=== PATIENT | female | born 1980 | race Caucasian/White ===

== ENCOUNTER 2017-08-23 11:11 | Emergency (ER) | payer OTHER ==
[2017-08-23 11:29] VITALS: TEMP 98.2; BMI 25.9
[2017-08-23] MEDS ORDERED: SODIUM CHLORIDE 1,000 ML IV ONE (11:40)
[2017-08-23 11:55] LABS: URINE APPEARANCE CLEAR; URINE BILIRUBIN NEGATIVE (NEGATIVE); URINE BLOOD NEGATIVE (NEGATIVE); URINE COLOR STRAW; URINE GLUCOSE (UA) 3+ (NEGATIVE); URINE KETONE NEGATIVE (NEGATIVE); URINE LEUK ESTERASE NEGATIVE (NEGATIVE); URINE NITRITE NEGATIVE (NEGATIVE); URINE PROTEIN NEGATIVE (NEGATIVE); URINE UROBILINOGEN NEGATIVE mg/dL (0.2-1.0)
[2017-08-23 12:20] LABS: BASO % 0.9 % (0-2.0); EOS % 1.4 % (0-4.5); HEMATOCRIT 40.9 % (32.4-45.2); HEMOGLOBIN 13.6 GM/dL (10.7-15.3); LYMPH % 28.4 % (8-40); MCH 29.1 pg (25.7-33.7); MCHC 33.3 g/dl (32.0-36.0); MEAN CELL VOLUME 87.3 fl (80-96); MEAN PLT VOLUME 10.2 fl (7.5-11.1); MONO % 6.4 % (3.8-10.2); NEUT % 62.9 % (42.8-82.8); PLATELET COUNT 174 K/MM3 (134-434); RBC 4.68 M/mm3 (3.60-5.2); RDW 12.8 % (11.6-15.6); WHITE BLOOD COUNT 6.2 K/mm3 (4.0-10.0)
--- NOTE | 2017-08-23 12:40 | PDOC ---
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 Patient reports strong odorous shanice urine with associated flank pain. Patient also notes fluctuating blood sugars ranging from 600-700s. Patient endorses body aches, malaise and feeling unwell Patient reports to the ED for further evaluation. Patient admits to alcohol use over the past weekend. Patient denies chest pain, headache or dizziness. Patient denies fever, chills, abdominal pain, nausea, vomit, diarrhea or constipation. Patient denies dysuria, frequency, urgency or hematuria. Patient denies sick contacts or recent travel. Allergies: NKA Past surgical history: C section x4, Yes: Laminectomy, Chiari Malformation. Social history: Former smoker PCP: Dr. Robledo <Millie Carcamo - Last Filed: 08/23/17 13:07> - General History Source: Patient Exam Limitations: No Limitations - History of Present Illness Initial Comments: 08/23/17 12:37 37-year-old female with history of insulin-dependent diabetes presents with generalized malaise and feeling unwell for a few days. Slightly decreased by mouth intake, fluctuating glucose levels despite insulin pump infusion. No actual fevers or chills, no vomiting or diarrhea, dark urine but no dysuria. 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 No cardiopulmonary complaints. <Israel Sands - Last Filed: 08/23/17 14:19> - General Chief Complaint: Weakness Stated Complaint: WEAKNESS Time Seen by Provider: 08/23/17 11:39 Past History <Millie Carcamo - Last Filed: 08/23/17 13:07> - Past Medical History Anemia: No Asthma: No Cancer: No Cardiac Disorders: No CVA: No COPD: No CHF: No Dementia: No Diabetes: Yes GI Disorders: No Disorders: No HTN: No Hypercholesterolemia: No Liver Disease: No Seizures: No Thyroid Disease: No Other medical history: chiari malformation - Surgical History Abdominal Surgery: No Appendectomy: No Cardiac Surgery: No Cholecystectomy: No Lung Surgery: No Neurologic Surgery: Yes (LAMINECTOMY;CHIARIMAL FORMATION) - Suicide/Smoking/Psychosocial Hx Smoking Status: Yes Smoking History: Former smoker Have you smoked in the past 12 months: No Number of Cigarettes Smoked Daily: 5 Information on smoking cessation initiated: No Hx Alcohol Use: No Drug/Substance Use Hx: No Substance Use Type: None Hx Substance Use Treatment: No <TommiesherronElliot fitchIsrael - Last Filed: 08/23/17 14:19> - Past Medical History Allergies/Adverse Reactions: Allergies Allergy/AdvReac Type Severity Reaction Status Date / Time No Known Allergies Allergy Verified 08/23/17 11:32 Home Medications: Ambulatory Orders Insulin Pump Cartridge [Cartridge Stamped] 1 each SQ ASDIR 01/08/15 Review of Systems - Review of Systems Constitutional: Yes: Weakness. No: Chills, Fever Respiratory: No: Cough, Shortness of Breath Cardiac (ROS): No: Chest Pain ABD/GI: Yes: See HPI : Yes: See HPI All Other Systems: Reviewed and Negative <Israel Sands - Last Filed: 08/23/17 14:19> *Physical Exam - Vital Signs Last Vital Signs Temp Pulse Resp BP Pulse Ox 98.2 F 70 20 101/57 99 08/23/17 11:26 08/23/17 11:26 08/23/17 11:26 08/23/17 11:26 08/23/17 11:26 - Physical Exam Comments: 08/23/17 13:07 GENERAL: The patient is awake, alert, and fully oriented, in no acute distress. HEAD: Normal with no signs of trauma. EYES: Pupils equal, round and reactive to light, extraocular movements intact, sclera anicteric, conjunctiva clear with no pallor. ENT: Ears normal, nares patent, oropharynx clear without exudates. Moist mucous membranes. NECK: Normal range of motion, supple without lymphadenopathy, JVD, or masses. LUNGS: Breath sounds equal, clear to auscultation bilaterally. No wheeze/ crackles. HEART: Regular rate and rhythm, normal S1 and S2 without murmur or rub. ABDOMEN: Soft/nontender/nondistended. BS wnl. No guarding or rebound. No palpable masses. No hepatosplenomegaly. EXTREMITIES: Normal range of motion, no edema. No clubbing or cyanosis. No cords, erythema, or tenderness. NEUROLOGICAL: Cranial nerves II through XII grossly intact. Normal speech, normal gait. PSYCH: Normal mood, normal affect. SKIN: Warm, Dry, normal turgor, no rashes or lesions noted. <Millie Carcamo - Last Filed: 08/23/17 13:07> - Vital Signs Last Vital Signs Temp Pulse Resp BP Pulse Ox 98.2 F 70 20 101/57 99 08/23/17 11:26 08/23/17 11:26 08/23/17 11:26 08/23/17 11:26 08/23/17 11:26 <Israel Sands - Last Filed: 08/23/17 14:19> ED Treatment Course - LABORATORY CBC & Chemistry Diagram: 08/23/17 11:45 08/23/17 11:45 - ADDITIONAL ORDERS Additional order review: Laboratory Results 08/23/17 08/23/17 08/23/17 11:45 11:45 11:45 Sodium 133 L Potassium 4.0 Chloride 103 Carbon Dioxide 23 Anion Gap 7 L BUN 8 Creatinine 0.6 Creat Clearance w eGFR > 60 Random Glucose 270 H Calcium 8.4 L Magnesium 1.9 Total Bilirubin 1.2 H AST 4 L ALT 14 Alkaline Phosphatase 70 Total Protein 7.2 Albumin 4.0 Urine Color Straw Urine Appearance Clear Urine pH 6.0 Ur Specific [place] 1.009 Urine Protein Negative Urine Glucose (UA) 3+ H Urine Ketones Negative Urine Blood Negative Urine Nitrite Negative Urine Bilirubin Negative Urine Urobilinogen Negative Ur Leukocyte Esterase Negative 08/23/17 11:41 Influenza Types A,B Antigen (JUSTICE) - Final Nasopharyngeal Swab - Final 08/23/17 11:45 RBC 4.68 MCV 87.3 MCHC 33.3 RDW 12.8 MPV 10.2 Neutrophils % 62.9 Lymphocytes % 28.4 Monocytes % 6.4 Eosinophils % 1.4 Basophils % 0.9 <Millie Carcamo - Last Filed: 08/23/17 13:07> - LABORATORY CBC & Chemistry Diagram: 08/23/17 11:45 08/23/17 11:45 - ADDITIONAL ORDERS Additional order review: Laboratory Results 08/23/17 11:45 Urine Color Straw Urine Appearance Clear Urine pH 6.0 Ur Specific [place] 1.009 Urine Protein Negative Urine Glucose (UA) 3+ H Urine Ketones Negative Urine Blood Negative Urine Nitrite Negative Urine Bilirubin Negative Urine Urobilinogen Negative Ur Leukocyte Esterase Negative 08/23/17 11:41 Influenza Types A,B Antigen (JUSTICE) - Final Nasopharyngeal Swab - Final 08/23/17 11:45 RBC 4.68 MCV 87.3 MCHC 33.3 RDW 12.8 MPV 10.2 Neutrophils % 62.9 Lymphocytes % 28.4 Monocytes % 6.4 Eosinophils % 1.4 Basophils % 0.9 <Israel Sands - Last Filed: 08/23/17 14:19> Medical Decision Making - Medical Decision Making 08/23/17 12:39 A portion of this note was documented by scribe services under my direction. I have reviewed the details of the note, within reason, and agree with the documentation with the following case summary and management plan written by me. 37-year-old female known insulin-dependent diabetic with worsening malaise over the last few days, here with dark urine but no other focal infectious complaints. Possible metabolic disarray, rule out DKA, rule out UTI. Check labs/creatinine Urinalysis IV fluids Reassess 08/23/17 14:17 labs wnl, slight hyperglycemia without elevated AG. UA clear with only glucose. Received NS 1L, influenza negative. Agrees with d/c, understands return criteria. <Israel Sands - Last Filed: 08/23/17 14:19> *DC/Admit/Observation/Transfer - Attestations Scribe Attestion: 08/23/17 13:07 Documentation prepared by Millie Carcamo, acting as medical radiation tech for Israel Sands MD <Millie Carcamo - Last Filed: 08/23/17 13:07> <Israel Sands - Last Filed: 08/23/17 14:19> Diagnosis at time of Disposition: IDDM (insulin dependent diabetes mellitus) - Discharge Dispostion Disposition: HOME Condition at time of disposition: Stable - Referrals Referrals: Sabino Robledo MD [Primary Care Provider] - - Patient Instructions Printed Discharge Instructions: DI for Hyperglycemia -- Adult Additional Instructions: Activity as tolerated. Stay hydrated. Continue your medications as previously prescribed by your physician. You should follow up with Dr. Robledo as soon as possible regarding today's emergency department visit. Return to the emergency department for any new or concerning symptoms, particularly high fevers or chills, persistently elevated glucose, dehydration or weakness. - Post Discharge Activity
[2017-08-23 12:42] LABS: MAGNESIUM 1.9 mg/dL (1.8-2.4)
[2017-08-23 12:48] LABS: ANION GAP 7 (8-16); BILIRUBIN,TOTAL 1.2 mg/dL (0.2-1.0); BLOOD UREA NITROGEN 8 mg/dL (7-18); CALCIUM 8.4 mg/dL (8.5-10.1); CHLORIDE 103 mmol/L (98-107); CO2 23 mmol/L (21-32); CREATININE 0.6 mg/dL (0.55-1.02); GLUCOSE,RANDOM 270 mg/dL (74-106); SGPT/ALT 14 U/L (12-78); SODIUM 133 mmol/L (136-145); TOT PROT 7.2 g/dl (6.4-8.2)
[2017-08-23 12:50] LABS: ALK PHOS 70 U/L (45-117)
[2017-08-23 12:58] LABS: SGOT/AST 4 U/L (15-37)
[2017-08-23 14:53] VITALS: BP 106/74; PULSE 72
[2017-08-23 15:40] LABS: ACETONE SERUM NEGATIVE (NEGATIVE)
== END 2017-08-23 14:53 | disposition home or self-care (01) ==
LOC: JER 11:11
PROC: 3E0337Z Introduction of Electrolytic and Water Balance Substance into Peripheral Vein, Percutaneous Approach (ICD-10-PCS; principal; 2017-08-23)
DX: E10.65 Type 1 diabetes mellitus with hyperglycemia (principal); Z79.4 Long term (current) use of insulin
CPT/HCPCS: 36415; 80053; 81003; 82009; 83036; 83735; 85025; 87804; 99284-25

== ENCOUNTER 2017-09-17 17:10 | Emergency (ER) | payer OTHER ==
[2017-09-17 17:17] VITALS: BP 124/76; PULSE 84; TEMP 98.5; BMI 25.6
[2017-09-17] MEDS ORDERED: SODIUM CHLORIDE 1,000 ML IV STA (17:24)
--- NOTE | 2017-09-17 17:25 | PDOC ---
Attending Attestation - Resident Resident Name: Gadiel Valladares - ED Attending Attestation I have performed the following: I have examined & evaluated the patient, The case was reviewed & discussed with the resident, I agree w/resident's findings & plan, Exceptions are as noted - HPI HPI: 09/17/17 17:25 37 yo fmeale with IDDm p/w hyperglycemia and polydypsia . Her bgm 600 . she has [employer] insulin pump , no fever,no nausea,no vomiting,no cough 09/17/17 17:59 - Physicial Exam PE: 09/17/17 17:25 wnwd 37 yo female in no acute distress head ncat neck no bruit lungs cta b/l cvr [id number] ext no e/c/c abd soft ,nontender skin warm and dry neuro axox3,ambulatory psych appropriate 09/17/17 18:01 - Medical Decision Making 09/17/17 18:11 IMP hypoerglycemia, ? pump malfunction,diet indiscretion? plan IVF,labs,,insulin and reassess 09/17/17 20:34 pt feeling fine glucose bgm 295,will discharge
[2017-09-17 17:40] LABS: BASO % 0.8 % (0-2.0); EOS % 1.2 % (0-4.5); HEMATOCRIT 40.4 % (32.4-45.2); HEMOGLOBIN 13.8 GM/dL (10.7-15.3); LYMPH % 38.5 % (8-40); MCH 29.4 pg (25.7-33.7); MCHC 34.1 g/dl (32.0-36.0); MEAN CELL VOLUME 86.3 fl (80-96); MONO % 5.2 % (3.8-10.2); NEUT % 54.3 % (42.8-82.8); PLATELET COUNT 145 K/MM3 (134-434); RBC 4.68 M/mm3 (3.60-5.2); RDW 13.1 % (11.6-15.6); WHITE BLOOD COUNT 5.7 K/mm3 (4.0-10.0)
[2017-09-17 18:03] LABS: ALBUMIN 4.1 g/dl (3.4-5.0); ALK PHOS 73 U/L (45-117); ANION GAP 9 (8-16); BILIRUBIN,TOTAL 1.3 mg/dL (0.2-1.0); BLOOD UREA NITROGEN 12 mg/dL (7-18); CALCIUM 8.2 mg/dL (8.5-10.1); CHLORIDE 101 mmol/L (98-107); CO2 23 mmol/L (21-32); POTASSIUM 3.7 mmol/L (3.5-5.1); SGPT/ALT 10 U/L (12-78); SODIUM 133 mmol/L (136-145); TOT PROT 7.3 g/dl (6.4-8.2)
[2017-09-17 18:16] LABS: SGOT/AST 3 U/L (15-37)
[2017-09-17 18:17] LABS: GLUCOSE,RANDOM 380 mg/dL (74-106)
--- NOTE | 2017-09-17 19:04 | PDOC ---
History of Present Illness - General History Source: Patient Exam Limitations: No Limitations <Gadiel Valladares - Last Filed: 09/17/17 19:03> <Sarah Cuellar - Last Filed: 09/17/17 21:21> - General Chief Complaint: Blood Sugar Problem Stated Complaint: HIGH BP Time Seen by Provider: 09/17/17 17:20 Past History - Past Medical History Anemia: No Asthma: No Cancer: No Cardiac Disorders: No CVA: No COPD: No CHF: No Dementia: No Diabetes: Yes GI Disorders: No Disorders: No HTN: No Hypercholesterolemia: No Liver Disease: No Seizures: No Thyroid Disease: No - Surgical History Abdominal Surgery: No Appendectomy: No Cardiac Surgery: No Cholecystectomy: No Lung Surgery: No Neurologic Surgery: Yes (LAMINECTOMY;CHIARIMAL FORMATION) - Suicide/Smoking/Psychosocial Hx Smoking Status: Yes Smoking History: Former smoker Have you smoked in the past 12 months: No Number of Cigarettes Smoked Daily: 5 Information on smoking cessation initiated: No Hx Alcohol Use: No Drug/Substance Use Hx: No Substance Use Type: None Hx Substance Use Treatment: No <Gadiel Valladares - Last Filed: 09/17/17 19:03> <Sarah Cuellar - Last Filed: 09/17/17 21:21> - Past Medical History Allergies/Adverse Reactions: Allergies Allergy/AdvReac Type Severity Reaction Status Date / Time No Known Allergies Allergy Verified 09/17/17 17:14 Home Medications: Ambulatory Orders Insulin Pump Cartridge [Cartridge Stamped] 1 each SQ ASDIR 01/08/15 Dulaglutide [Trulicity] 1.5 mg SQ WEEKLY 09/17/17 *Physical Exam - Vital Signs Last Vital Signs Temp Pulse Resp BP Pulse Ox 98.5 F 84 18 124/76 100 09/17/17 17:15 09/17/17 17:15 09/17/17 17:15 09/17/17 17:15 09/17/17 17:15 <Gadiel Valladares - Last Filed: 09/17/17 19:03> - Vital Signs Last Vital Signs Temp Pulse Resp BP Pulse Ox 98.5 F 84 18 124/76 100 09/17/17 17:15 09/17/17 17:15 09/17/17 17:15 09/17/17 17:15 09/17/17 17:15 <Sarah Cuellar - Last Filed: 09/17/17 21:21> ED Treatment Course - LABORATORY CBC & Chemistry Diagram: 09/17/17 17:30 09/17/17 17:30 - ADDITIONAL ORDERS Additional order review: Laboratory Results 09/17/17 17:30 Sodium 133 L Potassium 3.7 Chloride 101 Carbon Dioxide 23 Anion Gap 9 BUN 12 Creatinine 1.0 Creat Clearance w eGFR > 60 Random Glucose 380 H* Calcium 8.2 L Total Bilirubin 1.3 H AST 3 L ALT 10 L Alkaline Phosphatase 73 Total Protein 7.3 Albumin 4.1 09/17/17 17:30 RBC 4.68 MCV 86.3 MCHC 34.1 RDW 13.1 MPV 11.0 Neutrophils % 54.3 Lymphocytes % 38.5 D Monocytes % 5.2 Eosinophils % 1.2 Basophils % 0.8 - Medications Given in the ED: ED Medications Discontinued Medications Generic Name Dose Route Start Last Admin Trade Name Freq PRN Reason Stop Dose Admin Sodium Chloride 1,000 mls @ 1,000 mls/hr 09/17/17 17:24 09/17/17 17:29 Normal Saline - IV 09/17/17 18:23 1,000 mls/hr ASDIR STA Administration <Gadiel Valladares - Last Filed: 09/17/17 19:03> - LABORATORY CBC & Chemistry Diagram: 09/17/17 17:30 09/17/17 17:30 - ADDITIONAL ORDERS Additional order review: Laboratory Results 09/17/17 09/17/17 19:00 17:30 Sodium 133 L Potassium 3.7 Chloride 101 Carbon Dioxide 23 Anion Gap 9 BUN 12 Creatinine 1.0 Creat Clearance w eGFR > 60 Random Glucose 380 H* Calcium 8.2 L Total Bilirubin 1.3 H AST 3 L ALT 10 L Alkaline Phosphatase 73 Total Protein 7.3 Albumin 4.1 Urine Color Straw Urine Appearance Clear Urine pH 6.0 Ur Specific [place] 1.028 Urine Protein Negative Urine Glucose (UA) 3+ H Urine Ketones Trace H Urine Blood Negative Urine Nitrite Negative Urine Bilirubin Negative Urine Urobilinogen Negative Ur Leukocyte Esterase Negative 09/17/17 17:30 RBC 4.68 MCV 86.3 MCHC 34.1 RDW 13.1 MPV 11.0 Neutrophils % 54.3 Lymphocytes % 38.5 D Monocytes % 5.2 Eosinophils % 1.2 Basophils % 0.8 - Medications Given in the ED: ED Medications Discontinued Medications Generic Name Dose Route Start Last Admin Trade Name Gio PRN Reason Stop Dose Admin Sodium Chloride 1,000 mls @ 1,000 mls/hr 09/17/17 17:24 09/17/17 17:29 Normal Saline - IV 09/17/17 18:23 1,000 mls/hr ASDIR STA Administration <Sarah Cuellar - Last Filed: 09/17/17 21:21> *DC/Admit/Observation/Transfer <Gadiel Valladares - Last Filed: 09/17/17 19:03> <Sarah Cuellar - Last Filed: 09/17/17 21:21> Diagnosis at time of Disposition: IDDM (insulin dependent diabetes mellitus), Hyperglycemia - Discharge Dispostion Disposition: HOME Condition at time of disposition: Stable - Patient Instructions Printed Discharge Instructions: DI for Hyperglycemia -- Adult Additional Instructions: please follow up with your regular physician
[2017-09-17 20:43] LABS: URINE APPEARANCE CLEAR; URINE BILIRUBIN NEGATIVE (NEGATIVE); URINE BLOOD NEGATIVE (NEGATIVE); URINE COLOR STRAW; URINE GLUCOSE (UA) 3+ (NEGATIVE); URINE KETONE TRACE (NEGATIVE); URINE LEUK ESTERASE NEGATIVE (NEGATIVE); URINE NITRITE NEGATIVE (NEGATIVE); URINE PROTEIN NEGATIVE (NEGATIVE); URINE UROBILINOGEN NEGATIVE mg/dL (0.2-1.0)
== END 2017-09-17 21:27 | disposition home or self-care (01) ==
LOC: JER 17:10
PROC: 3E0337Z Introduction of Electrolytic and Water Balance Substance into Peripheral Vein, Percutaneous Approach (ICD-10-PCS; principal; 2017-09-17)
DX: E10.65 Type 1 diabetes mellitus with hyperglycemia (principal); Z79.4 Long term (current) use of insulin; Z96.41 Presence of insulin pump (external) (internal)
CPT/HCPCS: 36415; 80053; 81003; 85025; 87086; 99283-25

== ENCOUNTER 2018-04-26 13:39 | Emergency (ER) | payer OTHER ==
[2018-04-26 13:51] VITALS: BP 114/68; PULSE 89; TEMP 97.9; BMI 26.6
[2018-04-26] MEDS ORDERED: SODIUM CHLORIDE 0.9% 1000 ML INFUS.BAG IV ONE (13:51)
[2018-04-26] MEDS ORDERED: ONDANSETRON 4 MG/2 ML VIAL IVPUSH ONE (13:52)
--- NOTE | 2018-04-26 13:59 | PDOC ---
History of Present Illness - General Chief Complaint: Blood Sugar Problem Stated Complaint: Blood Sugar Problem Time Seen by Provider: 04/26/18 13:49 - History of Present Illness Initial Comments: 04/26/18 13:53 36-year-old female history of diabetes, Chiari malformation, pancreatitis, endometriosis, Q today complaining of feeling nausea body aches headache and high sugars. Patient states she has a insulin pump recently feels the pump wasn' t working correctly. She has been giving herself insulin to compensate for her pump. Today on awakening she checked her sugar and it was over 600 she then gave herself 15 units of regular insulin most recently when she checked her sugar it had come down to 150. She describes feeling chilled but no fevers does have left-sided chest pain bilateral flank pain and generalized myalgia no cough no shortness of breath no urinary complaints. PCP is Dr. recio Past History - Past Medical History Allergies/Adverse Reactions: Allergies Allergy/AdvReac Type Severity Reaction Status Date / Time No Known Allergies Allergy Verified 09/17/17 17:14 Home Medications: Ambulatory Orders Insulin Pump Cartridge [Cartridge Stamped] 1 each SQ ASDIR 01/08/15 Dulaglutide [Trulicity] 1.5 mg SQ WEEKLY 09/17/17 Anemia: No Asthma: No Cancer: No Cardiac Disorders: Yes CVA: No COPD: No CHF: No Dementia: No Diabetes: Yes GI Disorders: No Disorders: No HTN: No Hypercholesterolemia: No Liver Disease: No Seizures: No Thyroid Disease: No - Surgical History Abdominal Surgery: No Appendectomy: No Cardiac Surgery: No Cholecystectomy: No Lung Surgery: No Neurologic Surgery: Yes (LAMINECTOMY;CHIARIMAL FORMATION) - Suicide/Smoking/Psychosocial Hx Smoking Status: Yes Smoking History: Former smoker Have you smoked in the past 12 months: No Number of Cigarettes Smoked Daily: 5 Information on smoking cessation initiated: No Hx Alcohol Use: No Drug/Substance Use Hx: No Substance Use Type: None Hx Substance Use Treatment: No Review of Systems - Review of Systems Constitutional: Yes: Chills. No: Diaphoresis, Fever Respiratory: No: Cough, Orthopnea, Shortness of Breath Cardiac (ROS): Yes: Chest Pain : No: Burning, Dysuria, Discharge Musculoskeletal: Yes: Muscle Pain Integumentary: Yes: Flushing. No: Bruising, Change in Color Endocrine: Yes: Flushing All Other Systems: Reviewed and Negative *Physical Exam - Vital Signs Last Vital Signs Temp Pulse Resp BP Pulse Ox 97.9 F 89 18 114/68 98 04/26/18 13:49 04/26/18 13:49 04/26/18 13:49 04/26/18 13:49 04/26/18 13:49 - Physical Exam Comments: 04/26/18 13:56 Awake alert no acute distress mild facial flushing noted lungs are clear bilaterally heart is regular without any murmurs rubs or gallops abdomen is soft and nontender extremities are warm and well-perfused skin is warm and dry no noted rash only noted flushing in the cheeks neurologically alert oriented 3 Procedures - Bedside Ultrasound Bedside Ultrasound: Cardiac Other: echo Heart Score/ECG Review #1 General ECG Interpretation: Sinus Rhythm, Normal Rate (73), Normal Intervals, No acute ischemic changes ED Treatment Course - LABORATORY CBC & Chemistry Diagram: 04/26/18 13:50 04/26/18 13:50 Medical Decision Making - Medical Decision Making 04/26/18 13:57 37-year-old female history of diabetes with recent pump malfunction sugars reading high now complaining of nausea myalgia headache. Differential diagnosis includes DKA, electrolyte abnormality, subsequent hypoglycemia, infection such as UTI, patient's chest pain pericarditis or myocarditis or MIs considered. Plan EKG troponin chest x-ray UA UCG CBC CMP suarez tones. Will give IV hydration and antinausea medication treat hyperglycemia and acidosis as necessary in addition patient lives in a [facility] area family member did recently get diagnosed Lyme's disease will obtain Lyme titers due to the significant myalgia. Patient does have a history of Chiari however states that her headache is not similar to previous symptoms of Chiari disease 04/26/18 16:26 focused ED TTE, indication chest pain four views of heart obtained, using curvilinear probe. good contractility noted, no pericardial effusion. no rv dilation or strain, impressions: good contractility. no pericardial effusion. pt with negative troponin. no risk factors ro pe, pain not pleuritic. no h/o pe or dvt. no leg swelling or recent travel. feels improved. labs unremarkable. would like to be discharged home. has plan for updating pump to be functional. 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 04/26/18 16:[address] freitas, pt audio visual facilities engineer. state pt had echo that did not show any lvh. will see her next week told to call and schedule an appointment. *DC/Admit/Observation/Transfer Diagnosis at time of Disposition: Hyperglycemia - Discharge Dispostion Disposition: HOME Decision to Admit order: No - Referrals Referrals: Sabino Robledo MD [Primary Care Provider] - Aurelio Colon MD [Staff Physician] - - Patient Instructions Printed Discharge Instructions: DI for Hyperglycemia -- Adult Additional Instructions: you should follow up with your audio visual facilities engineer within one week. call to schedule. return for recurrent high sugars, chest pain, nausea or vomiting, shortness of breath or any other concerns. follow up with your bunk house worker and dr Robledo. your labs and ekg are normal. your limited echo performed today is normal with good contraction and no fluid arround the heart. you should see dr. freitas next week, he says to call for an appointment. - Post Discharge Activity
[2018-04-26] MEDS ORDERED: ONDANSETRON 4 MG/2 ML VIAL ONE (14:04)
[2018-04-26 14:07] LABS: BASO % 0.9 % (0-2.0); EOS % 1.2 % (0-4.5); HEMATOCRIT 43.3 % (32.4-45.2); LYMPH % 29.9 % (8-40); MCH 30.1 pg (25.7-33.7); MCHC 34.6 g/dl (32.0-36.0); MEAN CELL VOLUME 87.1 fl (80-96); MEAN PLT VOLUME 9.8 fl (7.5-11.1); MONO % 8.4 % (3.8-10.2); NEUT % 59.6 % (42.8-82.8); PLATELET COUNT 225 K/MM3 (134-434); RBC 4.98 M/mm3 (3.60-5.2); RDW 12.5 % (11.6-15.6); WHITE BLOOD COUNT 6.3 K/mm3 (4.0-10.0)
[2018-04-26 14:41] LABS: ALBUMIN 4.4 g/dl (3.4-5.0); ALK PHOS 82 U/L (45-117); ANION GAP 8 MMOL/L (8-16); BILIRUBIN,TOTAL 2.1 mg/dL (0.2-1); BLOOD UREA NITROGEN 13 mg/dL (7-18); CALCIUM 8.7 mg/dL (8.5-10.1); CHLORIDE 106 mmol/L (98-107); CO2 22 mmol/L (21-32); CREATININE 0.7 mg/dL (0.55-1.3); GLUCOSE,RANDOM 93 mg/dL (74-106); SGOT/AST 10 U/L (15-37); SGPT/ALT 17 U/L (13-61); SODIUM 136 mmol/L (136-145)
[2018-04-26 15:31] LABS: URINE APPEARANCE SLCLOUDY; URINE BILIRUBIN NEGATIVE (<2.0 mg/dL); URINE COLOR STRAW; URINE GLUCOSE (UA) NEGATIVE (NEGATIVE); URINE KETONE TRACE (NEGATIVE); URINE LEUK ESTERASE NEGATIVE (NEGATIVE); URINE NITRITE NEGATIVE (NEGATIVE); URINE PROTEIN NEGATIVE (NEGATIVE); URINE UROBILINOGEN NEGATIVE mg/dL (0.2-1.0)
--- NOTE | 2018-04-27 17:11 | EKG ---
Test Reason : Blood Pressure : / mmHG Vent. Rate : 073 BPM Atrial Rate : 073 BPM P-R Int : 176 ms QRS Dur : 094 ms QT Int : 400 ms P-R-T Axes : 045 055 046 degrees QTc Int : 440 ms NORMAL SINUS RHYTHM NORMAL ECG WHEN COMPARED WITH ECG OF 18-FEB-2013 07:39, NO SIGNIFICANT CHANGE WAS FOUND Confirmed by SHAGGY BAHENA MD ([id number]) on 04/27/2018 5:11:29 PM Referred By: Confirmed By:SHAGGY BAHENA MD
== END 2018-04-26 16:31 | disposition home or self-care (01) ==
LOC: JER 13:39
PROC: 3E033GC Introduction of Other Therapeutic Substance into Peripheral Vein, Percutaneous Approach (ICD-10-PCS; principal; 2018-04-26)
DX: E10.65 Type 1 diabetes mellitus with hyperglycemia (principal); Z79.4 Long term (current) use of insulin; Z96.41 Presence of insulin pump (external) (internal); K86.1 Other chronic pancreatitis
CPT/HCPCS: 36415; 71046-TC-FY; 80053; 81003; 82009; 82550; 82962; 83036; 83605; 84484; 85025; 86618; 93005; 93010; 99282-25; J7030

== ENCOUNTER 2018-07-14 13:13 | Inpatient (IN) | payer OTHER ==
[2018-07-14] MEDS ORDERED: ONDANSETRON *ODT* 4 MG TABLET ONE (13:25)
[2018-07-14] MEDS ORDERED: FAMOTIDINE 20 MG/50 ML IVPB 20 MG/50 ML MG IVPB ONE ×3 (13:25→14:46)
[2018-07-14] MEDS ORDERED: SODIUM CHLORIDE 0.9% 1000 ML INFUS.BAG IV ONE ×3 (13:35→14:48)
[2018-07-14] MEDS ORDERED: ONDANSETRON *ODT* 4 MG TABLET SL ONE (13:36)
[2018-07-14] MEDS ORDERED: HYDROmorphone HCL CARPU-JECT 2 MG/1 ML DISP.SYRIN IVPUSH ONE (13:36)
[2018-07-14] MEDS ORDERED: ONDANSETRON 4 MG/2 ML VIAL IVPUSH ONE (13:36)
[2018-07-14] MEDS ORDERED: HYDROmorphone HCl 2 MG/ML VIAL ONE (13:42)
[2018-07-14] MEDS ORDERED: ONDANSETRON 4 MG/2 ML VIAL ONE (13:43)
[2018-07-14] MEDS ORDERED: ACETAMINOPHEN INJECTION 100 ML IVPB ONE (13:44)
[2018-07-14] MEDS ORDERED: INSULIN REGULAR 100 UNITS in SODIUM CHLORIDE 99 ML IVPB SCH (13:45)
[2018-07-14] MEDS ORDERED: ALBUTEROL SO4 2.5/IPRATROPIUM 0.5 INH SOL 3 ML VIAL.NEB. NEB ONE ×2 (13:46)
[2018-07-14] MEDS ORDERED: ACETAMINOPHEN 1000 MG/100 ML VIAL (NON FORMULARY) IVPB ONE (13:46)
[2018-07-14 14:12] LABS: BASO % 0.6 % (0-2.0); EOS % 0.1 % (0-4.5); HEMATOCRIT 39.8 % (32.4-45.2); LYMPH % 5.3 % (8-40); MCH 31.3 pg (25.7-33.7); MCHC 35.1 g/dl (32.0-36.0); MEAN CELL VOLUME 89.2 fl (80-96); MEAN PLT VOLUME 10.8 fl (7.5-11.1); MONO % 7.4 % (3.8-10.2); NEUT % 86.6 % (42.8-82.8); PLATELET COUNT 157 K/MM3 (134-434); RBC 4.46 M/mm3 (3.60-5.2); WHITE BLOOD COUNT 8.1 K/mm3 (4.0-10.0)
[2018-07-14 14:20] LABS: ARTERIAL BLOOD GAS BASE EXCESS -20.2 meq/l (-2-2); ARTERIAL BLOOD GAS pH 7.21 (7.35-7.45); CARBOXYHEMOGLOBIN 0.6 gm% (0.5-2.0)
--- NOTE | 2018-07-14 14:26 | PDOC ---
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 She states she took 15 units of insulin prior to bed. She states her sugar dropped very low and then shot back up to 500 without having eaten anything today.She states she removed her insulin pump when she noticed her BGM was back to 500 this morning. She reports nausea and multiple episodes of NBNB emesis today. She reports a diffuse pressure like headache. She denies visual changes. Secondarily, she states she has been experiencing cold symptoms including dry cough which is associated with lung burning sensation and increased SOB. She states she could not walk 5 feet today without becoming short of breath. Patient denies chest pain or dizziness. Patient denies abdominal pain, diarrhea or constipation. Patient denies dysuria, frequency, urgency or hematuria. Patient denies sick contacts or recent travel. Allergies: NKDA Past surgical history: C section x4, Laminectomy, Chiari Malformation. Social history: Former smoker PCP: Dr. Robledo <Barbara Garcia - Last Filed: 07/14/18 15:04> - General Chief Complaint: SIRS, Suspected/Possible Stated Complaint: vomiting fever Past History - Past Medical History Anemia: No Asthma: No Cancer: No Cardiac Disorders: Yes CVA: No COPD: No CHF: No Dementia: No Diabetes: Yes GI Disorders: No Disorders: No HTN: No Hypercholesterolemia: No Liver Disease: No Seizures: No Thyroid Disease: No - Surgical History Abdominal Surgery: No Appendectomy: No Cardiac Surgery: No Cholecystectomy: No Lung Surgery: No Neurologic Surgery: Yes (LAMINECTOMY;CHIARIMAL FORMATION) - Suicide/Smoking/Psychosocial Hx Smoking Status: Yes Smoking History: Current some day smoker Have you smoked in the past 12 months: Yes Number of Cigarettes Smoked Daily: 1 Information on smoking cessation initiated: No Hx Alcohol Use: No Drug/Substance Use Hx: No Substance Use Type: None Hx Substance Use Treatment: No <Yesenia Stanley - Last Filed: 07/14/18 14:57> <Barbara Garcia - Last Filed: 07/14/18 15:04> - Past Medical History Allergies/Adverse Reactions: Allergies Allergy/AdvReac Type Severity Reaction Status Date / Time No Known Allergies Allergy Verified 09/17/17 17:14 Home Medications: Ambulatory Orders Insulin Pump Cartridge [Cartridge Stamped] 1 each SQ ASDIR 01/08/15 Dulaglutide [Trulicity] 1.5 mg SQ WEEKLY 09/17/17 Review of Systems - Review of Systems Able to Perform ROS?: Yes Comments:: 07/14/18 15:03 GENERAL/CONSTITUTIONAL: (+) subjective fever and chills. No weakness. HEAD, EYES, EARS, NOSE AND THROAT: No change in vision. No ear pain or discharge. No sore throat. GASTROINTESTINAL: (+) nausea, vomiting, No diarrhea or constipation. GENITOURINARY: No dysuria, frequency, or change in urination. CARDIOVASCULAR: (+)shortness of breath. No chest pain RESPIRATORY:(+) SOB and cough, No wheezing, or hemoptysis. MUSCULOSKELETAL: No joint or muscle swelling or pain. No neck or back pain. SKIN: No rash NEUROLOGIC: (+) headache, No vertigo, loss of consciousness, or change in strength/sensation. ENDOCRINE: No increased thirst. No abnormal weight change. HEMATOLOGIC/LYMPHATIC: No anemia, easy bleeding, or history of blood clots. ALLERGIC/IMMUNOLOGIC: No hives or skin allergy. <Barbara Garcia - Last Filed: 07/14/18 15:04> *Physical Exam - Vital Signs Last Vital Signs Temp Pulse Resp BP Pulse Ox 97.7 F 105 H 20 116/60 100 07/14/18 13:22 07/14/18 13:15 07/14/18 13:15 07/14/18 13:15 07/14/18 13:15 <Yesenia Stanley - Last Filed: 07/14/18 14:57> - Vital Signs Last Vital Signs Temp Pulse Resp BP Pulse Ox 97.7 F 108 H 18 110/64 100 07/14/18 13:22 07/14/18 14:44 07/14/18 14:44 07/14/18 14:44 07/14/18 14:44 - Physical Exam Comments: 07/14/18 15:03 Constitutional: Awake, alert, oriented. No acute distress. Head: Normocephalic. Atraumatic Eyes: PERRL. EOMI. Conjunctivae are not pale. ENT: (+) Mucous membranes are dry and intact. Posterior pharynx without exudates or erythema. Uvula midline. Neck: Supple. Full ROM. No lymphadenopathy. Cardiovascular: (+) tachycardic rate. Regular rhythm. S1, S2 regular. Distal pulses are 2+ and symmetric. Pulmonary/Chest: No evidence of respiratory distress. Clear to auscultation bilaterally No wheezing, rales or rhonchi. Abdominal: Soft and non-distended. There is no tenderness. No rebound, guarding or rigidity. No organomegaly. No palpable masses. Good bowel sounds. Back: No CVA tenderness. Musculoskeletal: No edema. No cyanosis. No clubbing. Full range of motion in all extremities. Nocalf tenderness. Radial/pedal pulses are intact and 2+ bilaterally Skin: (+) Skin is hot to touch and dry. No petechiae. No purpura. Neurological: Alert and oriented to person, place, and time. Cranial nerves II -XII are grossly intact. Normal speech. Strength is grossly symmetric. No sensory deficits. Psychiatric: Good eye contact. Normal interaction, affect and behavior. <Barbara Garcia - Last Filed: 07/14/18 15:04> Moderate Sedation - Procedure Monitoring Vital Signs: Procedure Monitoring Vital Signs Temperature 97.7 F 07/14/18 13:22 Pulse Rate 105 H 07/14/18 13:15 Respiratory Rate 20 07/14/18 13:15 Blood Pressure 116/60 07/14/18 13:15 O2 Sat by Pulse Oximetry (%) 100 07/14/18 13:15 <Yesenia Stanley - Last Filed: 07/14/18 14:57> - Procedure Monitoring Vital Signs: Procedure Monitoring Vital Signs Temperature 97.7 F 07/14/18 13:22 Pulse Rate 108 H 07/14/18 14:44 Respiratory Rate 18 07/14/18 14:44 Blood Pressure 110/64 07/14/18 14:44 O2 Sat by Pulse Oximetry (%) 100 07/14/18 14:44 <Barbara Garcia - Last Filed: 07/14/18 15:04> Heart Score/ECG Review - ECG Intrepretation Comment:: 07/14/18 14:49 sinus tach at 110, nl axis, nl interval, no acute st/t wave findings <Yesenia Stanley - Last Filed: 07/14/18 14:57> ED Treatment Course - LABORATORY CBC & Chemistry Diagram: 07/14/18 13:58 07/14/18 13:58 - ADDITIONAL ORDERS Additional order review: Laboratory Results 07/14/18 07/14/18 13:51 13:34 Anticoagulation Therapy No Result Required. O2 Delivery Device No Result Required. Oxygen Flow Rate No Result Required. Vent Mode No Result Required. Vent Rate No Result Required. Mechanical Rate No Result Required. Pressure Support Vent No Result Required. POC Glucometer [id number] 07/14/18 07/14/18 13:58 13:34 RBC 4.46 MCV 89.2 MCHC 35.1 RDW 13.0 MPV 10.8 D Neutrophils % 86.6 H D Lymphocytes % 5.3 L D Monocytes % 7.4 Eosinophils % 0.1 D Basophils % 0.6 POC Glucometer 370.39782 - RADIOLOGY Radiology Studies Ordered: Category Date Time Status CHEST X-RAY PORTABLE* [RAD] Stat Radiology 07/14/18 13:35 Taken - Medications Given in the ED: ED Medications Discontinued Medications Generic Name Dose Route Start Last Admin Trade Name Gio PRN Reason Stop Dose Admin Acetaminophen 1,000 mg 07/14/18 13:46 07/14/18 14:07 Ofirmev Injection - IVPB 07/14/18 13:47 1,000 mg ONCE ONE Administration Albuterol/Ipratropium 1 amp 07/14/18 13:46 07/14/18 14:07 Duoneb - NEB 07/14/18 13:47 1 amp ONCE ONE Administration Hydromorphone HCl 1 mg 07/14/18 13:36 07/14/18 13:49 Dilaudid Injection - IVPUSH 07/14/18 13:37 1 mg ONCE ONE Administration Ondansetron HCl 4 mg 07/14/18 13:36 07/14/18 13:41 Zofran Odt - SL 07/14/18 13:37 4 mg ONCE ONE Administration Ondansetron HCl 4 mg 07/14/18 13:36 07/14/18 13:49 Zofran Injection IVPUSH 07/14/18 13:37 4 mg ONCE ONE Administration Sodium Chloride 1,000 ml 07/14/18 13:35 07/14/18 13:40 Normal Saline - IV 07/14/18 13:36 1,000 ml ONCE ONE Administration Sodium Chloride 1,000 ml 07/14/18 13:36 07/14/18 13:40 Normal Saline - IV 07/14/18 13:37 1,000 ml ONCE ONE Administration <Yesenia Stanley - Last Filed: 07/14/18 14:57> - LABORATORY CBC & Chemistry Diagram: 07/14/18 13:58 07/14/18 13:58 - ADDITIONAL ORDERS Additional order review: Laboratory Results 07/14/18 07/14/18 07/14/18 13:58 13:51 13:51 Anticoagulation Therapy No Result Required. Puncture Site No Result Required. ABG pH 7.21 L* ABG pCO2 at Pt Temp 16.7 L* ABG pO2 at Pt Temp 212.0 H* ABG HCO3 6.4 L* ABG O2 Sat (Measured) 99.0 H ABG O2 Content 19.5 ABG Base Excess -20.2 L* Kelvin Test No Result Required. Carboxyhemoglobin 0.6 Methemoglobin 0.5 O2 Delivery Device No Result Required. Oxygen Flow Rate Yes Vent Mode No Result Required. Vent Rate No Result Required. Mechanical Rate No Result Required. Pressure Support Vent No Result Required. Sodium 133 L Potassium 4.2 Chloride 108 H Carbon Dioxide 7 L Anion Gap 18 H BUN 12 Creatinine 0.9 Creat Clearance w eGFR > 60 POC Glucometer Random Glucose 341 H* Lactic Acid Calcium 7.5 L Magnesium 1.8 Total Bilirubin 1.4 H AST 17 ALT 16 Alkaline Phosphatase 90 Creatine Kinase 41 Troponin I < 0.02 Total Protein 7.3 Albumin 4.1 Lipase 89 Serum , Qual Acetone, Qual Positive moderate 2+ H 07/14/18 07/14/18 07/14/18 13:51 13:51 13:34 Anticoagulation Therapy Puncture Site ABG pH ABG pCO2 at Pt Temp ABG pO2 at Pt Temp ABG HCO3 ABG O2 Sat (Measured) ABG O2 Content ABG Base Excess Kelvin Test Carboxyhemoglobin Methemoglobin O2 Delivery Device Oxygen Flow Rate Vent Mode Vent Rate Mechanical Rate Pressure Support Vent Sodium Potassium Chloride Carbon Dioxide Anion Gap BUN Creatinine Creat Clearance w eGFR POC Glucometer [id number] Random Glucose Lactic Acid 1.7 Calcium Magnesium Total Bilirubin AST ALT Alkaline Phosphatase Creatine Kinase Troponin I Total Protein Albumin Lipase Serum , Qual Negative Acetone, Qual 07/14/18 07/14/18 13:58 13:34 RBC 4.46 MCV 89.2 MCHC 35.1 RDW 13.0 MPV 10.8 D Neutrophils % 86.6 H D Lymphocytes % 5.3 L D Monocytes % 7.4 Eosinophils % 0.1 D Basophils % 0.6 POC Glucometer [id number] - Medications Given in the ED: ED Medications Discontinued Medications Generic Name Dose Route Start Last Admin Trade Name Freq PRN Reason Stop Dose Admin Acetaminophen 1,000 mg 07/14/18 13:46 07/14/18 14:07 Ofirmev Injection - IVPB 07/14/18 13:47 1,000 mg ONCE ONE Administration Albuterol/Ipratropium 1 amp 07/14/18 13:46 07/14/18 14:07 Duoneb - NEB 07/14/18 13:47 1 amp ONCE ONE Administration Hydromorphone HCl 1 mg 07/14/18 13:36 07/14/18 13:49 Dilaudid Injection - IVPUSH 07/14/18 13:37 1 mg ONCE ONE Administration Famotidine/Sodium Chloride 20 mg in 50 mls @ 100 mls/hr 07/14/18 13:36 14:56 Pepcid 20 Mg Premixed Ivpb - IVPB 07/14/18 14:05 100 mls/hr ONCE ONE Administration Ondansetron HCl 4 mg 07/14/18 13:36 07/14/18 13:41 Zofran Odt - SL 07/14/18 13:37 4 mg ONCE ONE Administration Ondansetron HCl 4 mg 07/14/18 13:36 07/14/18 13:49 Zofran Injection IVPUSH 07/14/18 13:37 4 mg ONCE ONE Administration Sodium Chloride 1,000 ml 07/14/18 13:35 07/14/18 13:40 Normal Saline - IV 07/14/18 13:36 1,000 ml ONCE ONE Administration Sodium Chloride 1,000 ml 07/14/18 13:36 07/14/18 13:40 Normal Saline - IV 07/14/18 13:37 1,000 ml ONCE ONE Administration <Barbara Garcia - Last Filed: 07/14/18 15:04> Medical Decision Making - Critical Care Time Total Critical Care Time (minutes): 45 Critical Care Statement: The care of this patient involved high complexity decision making to prevent further life threatening deterioration of the patient 's condition and/or to evaluate & treat vital organ system(s) failure or risk of failure. - Medical Decision Making 07/14/18 14:49 a/p: 37yo female with hx of DM presents for eval of cough, URI, fever, n/v and labile glucose readings at home -pt is toxic appearing and dehydrated -concern for influenza -concern for DKA -concern for PNA -will send labs, cultures, ua, ucx, acetone, abg -pt will need admission -will start ivf hydration, zofran, pepcid, tylenol, nebs 07/14/18 14:49 flu negative cxr clear no elevated wbc 07/14/18 14:50 acetone + 07/14/18 14:50 abg shows metabolic acidosis - concern for DKA - insulin gtt ordered k 4.2 case discussed with ICU resident - Reynaldo who accepts pt to icu case discussed with Vikash Spann from Dr. Robledo service, who accepts pt to service consult placed to Dr. Hoyt and Dr. Raymond call placed to Dr. Raymond 07/14/18 14:57 <Yesenia Stanley - Last Filed: 07/14/18 14:57> *DC/Admit/Observation/Transfer - Discharge Dispostion Decision to Admit order: Yes - Attestations Physician Attestion: 07/14/18 14:46 I, Dr. Yesenia Stanley, DO, attest that this document has been prepared under my direction and personally reviewed by me in its entirety. I further attest, that it accurately reflects all work, treatment, procedures and medical decision -making performed by me. <Yesenia Stanley - Last Filed: 07/14/18 14:57> - Attestations Scribe Attestion: 07/14/18 15:04 Documentation prepared by Barbara Garcia, acting as medical transcription editor for Yesenia Stanley DO <Barbara Garcia - Last Filed: 07/14/18 15:04> Diagnosis at time of Disposition: DKA (diabetic ketoacidoses) - Discharge Dispostion Condition at time of disposition: Critical
[2018-07-14 14:32] LABS: ARTERIAL BLOOD GAS PCO2 16.7 mmHg (35-45)
[2018-07-14 14:45] LABS: ALBUMIN 4.1 g/dl (3.4-5.0); ALK PHOS 90 U/L (45-117); ANION GAP 18 MMOL/L (8-16); BILIRUBIN,TOTAL 1.4 mg/dL (0.2-1); BLOOD UREA NITROGEN 12 mg/dL (7-18); CALCIUM 7.5 mg/dL (8.5-10.1); CHLORIDE 108 mmol/L (98-107); CO2 7 mmol/L (21-32); CREATININE 0.9 mg/dL (0.55-1.3); LIPASE 89 U/L (73-393); MAGNESIUM 1.8 mg/dL (1.8-2.4); POTASSIUM 4.2 mmol/L (3.5-5.1); SGOT/AST 17 U/L (15-37); SGPT/ALT 16 U/L (13-61); SODIUM 133 mmol/L (136-145); TOT PROT 7.3 g/dl (6.4-8.2)
[2018-07-14 14:48] LABS: GLUCOSE,RANDOM 341 mg/dL (74-106)
[2018-07-14] MEDS ORDERED: INSULIN REGULAR HUMAN 100 UNITS/ML *VIAL ONE (14:53)
[2018-07-14] MEDS ORDERED: SODIUM CHLORIDE 0.9%/KCL 20 MEQ/1,000 ML INFUS.BAG IV SCH ×2 (15:45→15:46)
[2018-07-14] MEDS ORDERED: SODIUM CHLORIDE 1,000 ML IV SCH (15:45)
[2018-07-14] MEDS: KCL 10 MEQ IVPB 10 MEQ/100 ML INFUS.BAG IVPB SCH ×3 (16:04→21:00)
--- NOTE | 2018-07-14 16:08 | CONSULT ---
Consultation: ICU team REQUESTING PROVIDER:Dr merline Patterson CONSULT REQUEST: We have been asked to medically evaluate this patient for (DKA ). 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 she reports chest pain when coughing, and sob on exertion last week. she reports headache earlier but resolved at my present, denies any dizziness, lightheadedness, denies any palpitation , abdominal pain, D/C, denies any urinary symptoms. urine is condense michael yellow and fruity smell per pt. denies any joint pain back pain but reports chronic neck pain with h/o Budd chiarry and craniotomy with laminectomy denies any recent tarvel or sick contact. PMHx: DMI, Budd chairi, Endometriosis PSHx: 4 , Uterine ablation , craniotomy, laminectomy Allergis: NKDA Meds: Insulin pump at 300 units weekly, vit D 1999, Multivitamin FH: DM, HTN , and breast cancer , skin cancer in her mother. Social hx: skoming socially , alcohol socially, denies drugs. REVIEW OF SYSTEMS: CONSTITUTIONAL: Absent: fever, chills, diaphoresis, generalized weakness, malaise, loss of appetite, weight change HEENT: Absent: rhinorrhea, nasal congestion, throat pain, throat swelling, difficulty swallowing, mouth swelling, ear pain, eye pain, visual changes CARDIOVASCULAR: Absent: chest painwhen coughing , syncope, palpitations, irregular heart rate, lightheadedness, peripheral edema RESPIRATORY: Absent: cough, shortness of breath, dyspnea with exertion, orthopnea, wheezing, stridor, hemoptysis GASTROINTESTINAL: Absent: abdominal pain, abdominal distension, nausea, vomiting, diarrhea, constipation, melena, hematochezia GENITOURINARY: Absent: dysuria, frequency, urgency, hesitancy, hematuria, flank pain, genital pain MUSCULOSKELETAL: Absent: myalgia, arthralgia, joint swelling, back pain, neck pain SKIN: Absent: rash, itching, pallor HEMATOLOGIC/IMMUNOLOGIC: Absent: easy bleeding, easy bruising, lymphadenopathy, frequent infections ENDOCRINE: Absent: unexplained weight gain, unexplained weight loss, heat intolerance, cold intolerance NEUROLOGIC: Absent: headache, focal weakness or paresthesias, dizziness, unsteady gait, seizure, mental status changes, bladder or bowel incontinence PSYCHIATRIC: Absent: anxiety, depression, suicidal or homicidal ideation, hallucinations. PHYSICAL EXAMINATION Vital Signs - 24 hr 07/14/18 07/14/18 07/14/18 13:15 13:22 14:44 Temperature 97.7 F Pulse Rate 105 H Pulse Rate [ 108 H Right Radial] Respiratory 20 18 Rate Blood Pressure 116/60 Blood Pressure 110/64 [Right Arm] O2 Sat by Pulse 100 100 Oximetry (%) GENERAL: AAOx3 in NAD HEAD: NC/AT EYES: Merary, EOMI, ENT: Dry MM NECK: supple FROM, no JVD LUNGS: Breath sounds equal, clear to auscultation bilaterally. No wheezes, and no crackles. No accessory muscle use. HEART: Regular rate and rhythm, normal S1 and S2 without murmur, rub or gallop. ABDOMEN: Soft, nontender, not distended, normoactive bowel sounds, no guarding, no rebound, MUSCULOSKELETAL: Normal range of motion at all joints. No bony deformities or tenderness. No CVA tenderness. UPPER EXTREMITIES: 2+ pulses, warm, well-perfused. No cyanosis. No clubbing. Cap refill <2 seconds. No peripheral edema. LOWER EXTREMITIES: 2+ pulses, warm, well-perfused. No calf tenderness. No peripheral edema. NEUROLOGICAL: no focal deficit , Normal speech. PSYCHIATRIC: Cooperative. Good eye contact. Appropriate mood and affect. SKIN: Warm, dry, Laboratory Results - last 24 hr 07/14/18 07/14/18 07/14/18 13:34 13:51 13:51 WBC RBC Hgb Hct MCV MCH MCHC RDW Plt Count MPV Absolute Neuts (auto) Neutrophils % Lymphocytes % Monocytes % Eosinophils % Basophils % Nucleated RBC % Anticoagulation Therapy Puncture Site ABG pH ABG pCO2 at Pt Temp ABG pO2 at Pt Temp ABG HCO3 ABG O2 Sat (Measured) ABG O2 Content ABG Base Excess Kelvin Test Carboxyhemoglobin Methemoglobin O2 Delivery Device Oxygen Flow Rate Vent Mode Vent Rate Mechanical Rate Pressure Support Vent Sodium Potassium Chloride Carbon Dioxide Anion Gap BUN Creatinine Creat Clearance w eGFR POC Glucometer [id number] Random Glucose Lactic Acid 1.7 Calcium Magnesium Total Bilirubin AST ALT Alkaline Phosphatase Creatine Kinase Troponin I Total Protein Albumin Lipase Serum , Qual Acetone, Qual Influenza A (Rapid) Negative Influenza B (Rapid) Negative 07/14/18 07/14/18 07/14/18 13:51 13:51 13:51 WBC RBC Hgb Hct MCV MCH MCHC RDW Plt Count MPV Absolute Neuts (auto) Neutrophils % Lymphocytes % Monocytes % Eosinophils % Basophils % Nucleated RBC % Anticoagulation Therapy No Result Required. Puncture Site Right radial ABG pH 7.21 L* ABG pCO2 at Pt Temp 16.7 L* ABG pO2 at Pt Temp 212.0 H* ABG HCO3 6.4 L* ABG O2 Sat (Measured) 99.0 H ABG O2 Content 19.5 ABG Base Excess -20.2 L* Kelvin Test No Result Required. Carboxyhemoglobin 0.6 Methemoglobin 0.5 O2 Delivery Device No Result Required. Oxygen Flow Rate Yes Vent Mode No Result Required. Vent Rate No Result Required. Mechanical Rate No Result Required. Pressure Support Vent No Result Required. Sodium Potassium Chloride Carbon Dioxide Anion Gap BUN Creatinine Creat Clearance w eGFR POC Glucometer Random Glucose Lactic Acid Calcium Magnesium Total Bilirubin AST ALT Alkaline Phosphatase Creatine Kinase Troponin I Total Protein Albumin Lipase Serum , Qual Negative Acetone, Qual Positive moderate 2+ H Influenza A (Rapid) Influenza B (Rapid) 07/14/18 07/14/18 13:58 13:58 WBC 8.1 RBC 4.46 Hgb 14.0 Hct 39.8 MCV 89.2 MCH 31.3 MCHC 35.1 RDW 13.0 Plt Count 157 D MPV 10.8 D Absolute Neuts (auto) 7.0 Neutrophils % 86.6 H D Lymphocytes % 5.3 L D Monocytes % 7.4 Eosinophils % 0.1 D Basophils % 0.6 Nucleated RBC % 0 Anticoagulation Therapy Puncture Site ABG pH ABG pCO2 at Pt Temp ABG pO2 at Pt Temp ABG HCO3 ABG O2 Sat (Measured) ABG O2 Content ABG Base Excess Kelvin Test Carboxyhemoglobin Methemoglobin O2 Delivery Device Oxygen Flow Rate Vent Mode Vent Rate Mechanical Rate Pressure Support Vent Sodium 133 L Potassium 4.2 Chloride 108 H Carbon Dioxide 7 L Anion Gap 18 H BUN 12 Creatinine 0.9 Creat Clearance w eGFR > 60 POC Glucometer Random Glucose 341 H* Lactic Acid Calcium 7.5 L Magnesium 1.8 Total Bilirubin 1.4 H AST 17 ALT 16 Alkaline Phosphatase 90 Creatine Kinase 41 Troponin I < 0.02 Total Protein 7.3 Albumin 4.1 Lipase 89 Serum , Qual Acetone, Qual Influenza A (Rapid) Influenza B (Rapid) Active Medications Generic Name Dose Route Start Last Admin Trade Name Andrzejq PRN Reason Stop Dose Admin Insulin Human Regular 100 100 mls @ 7.07 mls/hr 07/14/18 13:45 07/14/18 15:30 units/ Sodium Chloride IVPB 0.14 units/kg/hr TITR ANEESH 9.9 mls/hr Titration Protocol 0.1 UNITS/KG/HR Potassium Chloride 10 meq in 100 mls @ 100 mls/hr 07/14/18 15:45 07/14/18 16: 04 Potassium Chloride 10 Meq Premix Ivpb - IVPB 07/14/18 18:44 100 mls/hr Q60M ANEESH Administration Potassium Chloride/Sodium Chloride 20 meq in 1,000 mls @ 175 mls/hr 07/14/18 15:46 07/14/18 15:50 Ns+20 Meq Kcl - IV 175 mls/hr ASDIR ANEESH Administration CBC, BMP 07/14/18 13:58 07/14/18 13:58 ASSESSMENT/PLAN: 37 year old female with h/o of DMI on insulin pump, endometriosis , 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 # DKA likley to non compliant plus infection * glucose 341, AG 18, Ketone in urine * one week h/o common cold * 2 large IV pores * IV fluids bolus 3L in ED , 175 NS @ 175 maintenance with 20 meq kcl * Insulin drip @ 0.1 ml/kg/hr * K4.2 started on 10 packs * BGM Q 1 hr * BMP Q 4hr with venous PH and AG * serum osmolality * start D5 1/2 NS @ glucose of 200 * keep K between 4-5.3 * when AG closed will start in Insulin SQ for 2 hours and start feeding her * UA , acetone Urine and serum * Cbc, cmp in AM # FEN * NS @ 175 CC/hr with 20 meq KCL * E: monitor K, P, na and replinished as needed * NPO till AG closed then diabetic diet # Proph * DVTS: SCDS * GI: no need # Dispo * monitor in ICU # Code : full Dispo: We will continue to follow the patient. Thank you for this consultative opportunity. Visit type - Emergency Visit Emergency Visit: Yes ED Registration Date: 07/14/18 Care time: The patient presented to the Emergency Department on the above date and was hospitalized for further evaluation of their emergent condition. - New Patient This patient is new to me today: Yes Date on this admission: 07/14/18 - Critical Care Critical Care patient: Yes Total Critical Care Time (in minutes): 45 Critical Care Statement: The care of this patient involved high complexity decision making to prevent further life threatening deterioration of the patient 's condition and/or to evaluate & treat vital organ system(s) failure or risk of failure.
[2018-07-14 16:23] VITALS: BMI 25.8
[2018-07-14] MEDS ORDERED: D5-1/2NS+10 MEQ KCL - 10 MEQ/1,000 ML INFUS.BAG IV SCH (17:00)
[2018-07-14] MEDS ORDERED: ONDANSETRON 4 MG/2 ML VIAL IVPB PRN (17:28)
[2018-07-14] MEDS: INSULIN REGULAR 100 UNITS in SODIUM CHLORIDE 99 ML IVPB SCH (17:49)
[2018-07-14] MEDS ORDERED: INSULIN SLIDING SCALE (NOVOLOG) 1 VIAL SQ SCH (18:00)
[2018-07-14 18:29] LABS: ANION GAP 17 MMOL/L (8-16); BLOOD UREA NITROGEN 11 mg/dL (7-18); CHLORIDE 111 mmol/L (98-107); CO2 9 mmol/L (21-32); CREATININE 0.9 mg/dL (0.55-1.3); GLUCOSE,RANDOM 219 mg/dL (74-106); POTASSIUM 3.8 mmol/L (3.5-5.1); SODIUM 137 mmol/L (136-145)
[2018-07-14 18:30] LABS: CALCIUM 6.8 mg/dL (8.5-10.1)
[2018-07-14] MEDS ORDERED: D5-1/2NS+20 MEQ KCL - 20 MEQ/1,000 ML INFUS.BAG IV SCH (18:45)
[2018-07-14 18:51] LABS: OSMOLALITY,SERUM 292 mosm/kg (278-305)
[2018-07-14] MEDS ORDERED: CALCIUM GLUCONATE 10% - 1,000 MG/10 ML VIAL IVPB ONE (19:00)
[2018-07-14 19:11] LABS: URINE APPEARANCE SLCLOUDY; URINE BILIRUBIN NEGATIVE (<2.0 mg/dL); URINE COLOR LTYELLOW; URINE GLUCOSE (UA) 3+ (NEGATIVE); URINE KETONE 2+ (NEGATIVE); URINE LEUK ESTERASE NEGATIVE (NEGATIVE); URINE NITRITE NEGATIVE (NEGATIVE); URINE PROTEIN 1+ (NEGATIVE); URINE UROBILINOGEN NEGATIVE mg/dL (0.2-1.0)
[2018-07-14 19:15] LABS: EPI CELLS RARE /HPF (FEW); URINE BACTERIA RARE /hpf (NONE SEEN); URINE MUCUS RARE
--- NOTE | 2018-07-14 19:47 | HP ---
Admitting History and Physical - Primary Care Physician PCP: Sabino Robledo - Admission Chief Complaint: fever, chills, generalized weakness, elevated blood sugar History of Present Illness: Patient is a 37 y/o female with past medical history of IDDM on insulin pump, endometriosis, Budd chiarry syndrome. Patient present to ED with complaints of fever, chills, generalized weakness. Patient states symptoms started on 07/08 and she eventually felt better. On 07/13/18 patient noted with fever tmax 102F , weakness, and BS 500mg/dL which went down to 365mg/dL after receiving insulin. This morning patient experiences nausea with 15 episodes of vomiting. History Source: Patient Limitations to Obtaining History: No Limitations - Past Medical History ...LMP: 06/16/18 ...: No Endocrine: Yes: Diabetes Mellitus - Past Surgical History Past Surgical History: Yes: Craniotomy, , Laminectomy - Smoking History Smoking history: Current some day smoker Have you smoked in the past 12 months: Yes Aproximately how many cigarettes per day: 1 - Alcohol/Substance Use Hx Alcohol Use: No Home Medications - Allergies Allergies/Adverse Reactions: Allergies Allergy/AdvReac Type Severity Reaction Status Date / Time No Known Allergies Allergy Verified 09/17/17 17:14 - Home Medications Home Medications: Ambulatory Orders Insulin Pump Cartridge [Cartridge Stamped] 1 each SQ ASDIR 01/08/15 Dulaglutide [Trulicity] 1.5 mg SQ WEEKLY 09/17/17 Review of Systems - Review of Systems Constitutional: reports: Chills, Fever, Weakness Eyes: reports: No Symptoms HENT: reports: Nasal Congestion, Throat Pain Neck: reports: No Symptoms Cardiovascular: reports: No Symptoms Respiratory: reports: Cough Gastrointestinal: reports: Nausea, Vomiting Genitourinary: reports: Frequency, Urgency Breasts: reports: No Symptoms Reported Musculoskeletal: reports: No Symptoms Integumentary: reports: No Symptoms Neurological: reports: No Symptoms Hematology/Lymphatic: reports: No Symptoms Psychiatric: reports: No Symptoms Physical Examination Vital Signs: Vital Signs Temperature 98.3 F 07/14/18 18:16 Pulse Rate 99 H 07/14/18 18:16 Respiratory Rate 20 07/14/18 18:16 Blood Pressure 111/59 L 07/14/18 18:16 O2 Sat by Pulse Oximetry (%) 99 07/14/18 16:46 Constitutional: Yes: Well Nourished Eyes: Yes: Conjunctiva Clear Neck: Yes: Supple Cardiovascular: Yes: Regular Rate and Rhythm Respiratory: Yes: Regular, CTA Bilaterally Gastrointestinal: Yes: Normal Bowel Sounds, Soft Musculoskeletal: Yes: WNL Extremities: Yes: WNL Edema: No Neurological: Yes: Alert, Oriented Psychiatric: Yes: Alert, Oriented Labs: CBC, BMP 07/14/18 13:58 07/14/18 17:15 Imaging - Results Chest X-ray: Report Reviewed Problem List - Problems (1) DKA (diabetic ketoacidoses) Code(s): E13.10 - OTH DIABETES MELLITUS WITH KETOACIDOSIS WITHOUT COMA Assessment/Plan -cont insulin gtt, titrate as needed -BGM -diabetic diet -trend AG (current AG~17) -D5 1/2NS + 20meq KCl at 150cc/hr -monitor electrolytes -endo consult -albuterol neb PRN -dvt ppx
[2018-07-14] MEDS ORDERED: ALBUTEROL SO4 0.083% IH SOL 2.5 MG/3 ML VIAL.NEB. NEB PRN (20:04)
[2018-07-14] MEDS ORDERED: guaiFENesin/CODEINE 5 ML UNIT-DOSE CUPS PO PRN (20:06)
[2018-07-14] MEDS ORDERED: guaiFENesin/D-M SUGAR-FREE/ACLHOL-FREE 118 ML BOTTLE PO PRN (20:07)
[2018-07-14] MEDS ORDERED: ACETAMINOPHEN 325 MG TABLET (FP) PO PRN (21:13)
[2018-07-14] MEDS ORDERED: ACETAMINOPHEN 1000 MG/100 ML VIAL (NON FORMULARY) IVPB PRN (21:16)
[2018-07-14 21:57] LABS: INR 1.08 (0.83-1.09); PROTHROMBIN TIME (PATIENT) 12.7 SEC (9.7-13.0)
[2018-07-14 21:59] LABS: ACTIVATED PTT 26.9 SECONDS (25.2-36.5)
[2018-07-14 22:44] LABS: ANION GAP 9 MMOL/L (8-16); BLOOD UREA NITROGEN 7 mg/dL (7-18); CHLORIDE 111 mmol/L (98-107); CO2 15 mmol/L (21-32); CREATININE 0.8 mg/dL (0.55-1.3); GLUCOSE,RANDOM 284 mg/dL (74-106); POTASSIUM 4.1 mmol/L (3.5-5.1); SODIUM 135 mmol/L (136-145)
[2018-07-14 22:57] LABS: CALCIUM 6.6 mg/dL (8.5-10.1)
[2018-07-14] MEDS ORDERED: PT OWN MED DRAWER 7, Y5N ONE (23:57)
[2018-07-15] MEDS ORDERED: PT OWN MED DRAWER 7, Y5N ONE ×2 (00:03→10:27)
[2018-07-15] MEDS: INSULIN REGULAR 100 UNITS in SODIUM CHLORIDE 99 ML IVPB SCH (01:20)
[2018-07-15 02:52] VITALS: PULSE 79
[2018-07-15] MEDS ORDERED: OXYMETAZOLINE 0.05% NASAL SOLUTION 15 ML BOTTLE NS PRN (05:57)
[2018-07-15 06:41] VITALS: TEMP 98.6
[2018-07-15 06:56] LABS: BASO % 0.4 % (0-2.0); EOS % 1.1 % (0-4.5); HEMATOCRIT 32.3 % (32.4-45.2); LYMPH % 31.7 % (8-40); MCH 29.9 pg (25.7-33.7); MCHC 34.2 g/dl (32.0-36.0); MEAN CELL VOLUME 87.5 fl (80-96); MEAN PLT VOLUME 10.1 fl (7.5-11.1); NEUT % 49.8 % (42.8-82.8); PLATELET COUNT 117 K/MM3 (134-434); RBC 3.69 M/mm3 (3.60-5.2); RDW 12.7 % (11.6-15.6); WHITE BLOOD COUNT 3.2 K/mm3 (4.0-10.0)
--- NOTE | 2018-07-15 07:13 | EKG ---
Test Reason : Blood Pressure : / mmHG Vent. Rate : 110 BPM Atrial Rate : 110 BPM P-R Int : 178 ms QRS Dur : 094 ms QT Int : 338 ms P-R-T Axes : 059 047 044 degrees QTc Int : 457 ms SINUS TACHYCARDIA OTHERWISE NORMAL ECG WHEN COMPARED WITH ECG OF 26-APR-2018 13:53, VENT. RATE HAS INCREASED BY 37 BPM Confirmed by ROYA WISE MD ([id number]) on 07/15/2018 7:12:59 AM Referred By: Confirmed By:ROYA WISE MD
[2018-07-15 08:02] LABS: ALBUMIN 2.7 g/dl (3.4-5.0); ALK PHOS 57 U/L (45-117); ANION GAP 8 MMOL/L (8-16); BILIRUBIN,TOTAL 0.6 mg/dL (0.2-1); BLOOD UREA NITROGEN 5 mg/dL (7-18); CHLORIDE 113 mmol/L (98-107); CO2 17 mmol/L (21-32); CREATININE 0.6 mg/dL (0.55-1.3); GLUCOSE,RANDOM 158 mg/dL (74-106); MAGNESIUM 1.7 mg/dL (1.8-2.4); PHOSPHOROUS 1.9 mg/dL (2.5-4.9); POTASSIUM 3.7 mmol/L (3.5-5.1); SGOT/AST 8 U/L (15-37); SGPT/ALT 12 U/L (13-61); SODIUM 138 mmol/L (136-145)
[2018-07-15] MEDS ORDERED: MAGNESIUM SULF 50% (8.12 MEQ/2 ML-1 GM VIAL) IVPB ONE (08:45)
[2018-07-15] MEDS ORDERED: AZITHROMYCIN 500 MG TABLET PO ONE (09:00)
[2018-07-15] MEDS ORDERED: guaiFENesin/CODEINE 5 ML UNIT-DOSE CUPS PO PRN (09:20)
[2018-07-15] MEDS ORDERED: POTASSIUM CHLORIDE TABS 20 MEQ TABLET.ER (FP) PO ONE (09:45)
[2018-07-15] MEDS ORDERED: POTASSIUM PHOSPHATE 30 MM in SODIUM CHLORIDE 250 ML IVPB ONE (10:00)
--- NOTE | 2018-07-15 11:28 | PN ---
Teaching Attending Note Name of Resident: Eulalio Waldron ATTENDING PHYSICIAN STATEMENT I saw and evaluated the patient. I reviewed the resident's note and discussed the case with the resident. I agree with the resident's findings and plan as documented. SUBJECTIVE: Pt seen and examined in the ICU. On low dose insulin gtt. Anion gap closed. Still with nasal and chest congestion. OBJECTIVE: Vital Signs Period Temp Pulse Resp BP Sys/Encarnacion Pulse Ox Last 24 Hr 97.7 F-98.6 F 79-108 14-20 91-116/55-65 99-100 Intake & Output 07/12/18 07/13/18 07/14/18 07/15/18 23:59 23:59 23:59 23:59 Intake Total 2267 Balance 2267 Weight 70.364 kg 71.866 kg Gen: NAD at rest Heart: RRR Lung: decreased breath sounds at the bases Abd: soft, nontender Ext: no edema CBC, BMP 07/15/18 05:35 07/15/18 05:35 Active Medications Acetaminophen (Ofirmev Injection -) 1,000 mg IVPB Q6H PRN PRN Reason: PAIN LEVEL 1-5 Last Admin: 07/14/18 21:29 Dose: 1,000 mg Albuterol Sulfate (Ventolin 0.083% Nebulizer Soln -) 1 amp NEB Q6H PRN PRN Reason: SHORT OF BREATH/WHEEZING Azithromycin (Zithromax -) 250 mg PO DAILY ANEESH Stop: 07/19/18 10:01 Guaifenesin/Codeine Phosphate (Robitussin Ac -) 5 ml PO BID PRN PRN Reason: COUGH Insulin Human Regular 100 (units/ Sodium Chloride) 100 mls @ 3.53 mls/hr IVPB TITR ANEESH; Protocol Last Titration: 07/15/18 05:00 Dose: 0.02 units/kg/hr, 2 mls/hr Potassium Chloride/Dextrose/Sod Cl (D5-1/2ns+20 Meq Kcl -) 20 meq in 1,000 mls @ 150 mls/hr IV ASDIR ANEESH Last Admin: 07/14/18 18:40 Dose: 150 mls/hr Potassium Phosphate 30 mm/ (Sodium Chloride) 260 mls @ 43.33 mls/hr IVPB ONCE ONE Stop: 07/15/18 16:00 Last Admin: 07/15/18 10:29 Dose: 43.33 mls/hr Insulin Aspart (Novolog Vial Sliding Scale -) 1 vial SQ Q4HPO ANEESH; Protocol Last Admin: 07/14/18 21:28 Dose: Not Given Ondansetron HCl (Zofran Injection) 4 mg IVPB Q6H PRN PRN Reason: NAUSEA Oxymetazoline HCl (Afrin -) 1 spray NS Q12H PRN PRN Reason: NASAL CONGESTION Last Admin: 07/15/18 06:29 Dose: 1 spray ASSESSMENT AND PLAN: Diabetic Ketoacidosis improving Endometriosis h/o Chiari Malformation repair - resume home insulin pump - d/c insulin gtt after pump replaced - IVF - PO as tolerated - empiric antibiotics - cough suppressants - DVT prophylaxis - can d/c home once insulin pump in place
--- NOTE | 2018-07-15 11:38 | DS ---
Physical Examination Vital Signs: Vital Signs Temperature 98.6 F 07/15/18 06:00 Pulse Rate 79 07/15/18 02:00 Respiratory Rate 18 07/15/18 06:00 Blood Pressure 105/56 L 07/15/18 06:00 O2 Sat by Pulse Oximetry (%) 99 07/14/18 22:00 Constitutional: Yes: Calm Cardiovascular: Yes: Regular Rate and Rhythm, S1, S2 Respiratory: Yes: CTA Bilaterally Gastrointestinal: Yes: Normal Bowel Sounds, Soft Edema: No Neurological: Yes: Alert, Oriented Labs: CBC, BMP 07/15/18 05:35 07/15/18 05:35 Discharge Summary Reason For Visit: DIABETIC KETOACIDOSIS Current Active Problems DKA (diabetic ketoacidoses) (Acute) Hospital Course: - Primary Care Physician PCP: Sabino Robledo - Admission Chief Complaint: fever, chills, generalized weakness, elevated blood sugar History of Present Illness: Patient is a 37 y/o female with past medical history of IDDM on insulin pump, endometriosis, Budd chiarry syndrome. Patient present to ED with complaints of fever, chills, generalized weakness. Patient states symptoms started on 07/08 and she eventually felt better. On 07/13/18 patient noted with fever tmax 102F , weakness, and BS 500mg/dL which went down to 365mg/dL after receiving insulin. This morning patient experiences nausea with 15 episodes of vomiting. History Source: Patient Limitations to Obtaining History: No Limitations patient admitted in iCU on insulin drip and abx labs repleted Condition: Improved - Instructions Diet, Activity, Other Instructions: antibiotic insulin pump Disposition: HOME - Home Medications Comprehensive Discharge Medication List: Ambulatory Orders Insulin Pump Cartridge [Cartridge Stamped] 1 each SQ ASDIR 01/08/15 Dulaglutide [Trulicity] 1.5 mg SQ WEEKLY 09/17/17
--- NOTE | 2018-07-15 12:11 | CONSULT ---
Consult Consult Specialty:: Endocrinology coverage for Dr Cantu Referred by:: Yesenia Rossi Reason for Consultation:: DKA - History of Present Illness Chief Complaint: Fever, Nausea, vomiting History of Present Illness: This is a 37 y/o female with past medical history of T1DM for about 6 years, on insulin pump, endometriosis, Budd chiarry syndrome who presented to ED with complaints of fever, chills, generalized weakness. Patient states symptoms started on 07/08 and she eventually felt better. On 07/13/18 patient noted with fever tmax 102F, weakness, and BS 500mg/dL which went down to 365mg/dL after receiving insulin. Yesterday she felt nauseous and vomited and couldn't keep food down so she stopped the pump and came to ED. The pump was off for about 2 hrs when she got to the ED. Pt found to be in DKA and treated with IV insulin and IV hydration with resolution of DKA and sympotms. Pt currently feels good, wants to go home for [facility]. Says she will return if she feels worse. BGM at home flucutates with high of 300s and low of 60s. She however woke up with blood sugar of 20s recently which responded to drinking milk. Has CGM at home which she has not used yet. No previous h/o of hospitalization for DKA. Attributes fluctuation in blood sugar to nonadherance to diet. - History Source History Provided By: Patient, Medical Record Limitations to Obtaining History: No Limitations - Past Medical History ...LMP: 06/16/18 ...: No Endocrine: Yes: Diabetes Mellitus - Past Surgical History Past Surgical History: Yes: Craniotomy, , Laminectomy - Alcohol/Substance Use Hx Alcohol Use: No - Smoking History Smoking history: Current some day smoker Have you smoked in the past 12 months: Yes Aproximately how many cigarettes per day: 1 Home Medications - Allergies Allergies/Adverse Reactions: Allergies Allergy/AdvReac Type Severity Reaction Status Date / Time No Known Allergies Allergy Verified 09/17/17 17:14 - Home Medications Home Medications: Ambulatory Orders Insulin Pump Cartridge [Cartridge Stamped] 1 each SQ ASDIR 01/08/15 Dulaglutide [Trulicity] 1.5 mg SQ WEEKLY 09/17/17 Azithromycin [Zithromax 250mg Tablets -] 250 mg PO DAILY #5 tablet MDD 1 Oxymetazoline 0.05% Nasal Soln [Afrin -] 1 spray NS Q12H PRN spray 07/15/18 Review of Systems - Review of Systems Constitutional: reports: Malaise Eyes: reports: No Symptoms HENT: reports: No Symptoms Neck: reports: No Symptoms Cardiovascular: reports: No Symptoms Respiratory: reports: Other (Stuffy nose) Gastrointestinal: reports: No Symptoms Genitourinary: reports: No Symptoms Musculoskeletal: reports: No Symptoms Neurological: reports: No Symptoms Endocrine: reports: No Symptoms Hematology/Lymphatic: reports: No Symptoms Psychiatric: reports: No Symptoms Physical Exam Vital Signs: Vital Signs Temperature 98.6 F 07/15/18 06:00 Pulse Rate 79 07/15/18 02:00 Respiratory Rate 18 07/15/18 06:00 Blood Pressure 105/56 L 07/15/18 06:00 O2 Sat by Pulse Oximetry (%) 99 07/14/18 22:00 Constitutional: Yes: No Distress, Calm Eyes: Yes: Conjunctiva Clear, EOM Intact HENT: Yes: Atraumatic, Normocephalic Neck: Yes: Supple, Trachea Midline Cardiovascular: Yes: Regular Rate and Rhythm Respiratory: Yes: Regular, CTA Bilaterally Gastrointestinal: Yes: Normal Bowel Sounds, Soft Musculoskeletal: Yes: WNL Extremities: Yes: WNL Edema: No Neurological: Yes: Alert, Oriented Labs: CBC, BMP 07/15/18 05:35 07/15/18 05:35 Assessment/Plan AP: DKA TIDM Start Insulin Pump Stop Insulin drip an hour later Pump setting reviewed Basal: 12MN to 3 AM: 0.875 3AM to 8:30 AM: 0.975 8:30 AM to 11:30 AM: 1.4 11:30 AM to MN 1.75 CHO ratio: 1:13 Sensitivity 1:40 Monitor BGM Elctrolyte replacement as necessary Encouraged to use CGM at home to monitor blood sugar closely and avoid severe hypoglycemia CMP stat , can go home if acidosis is resolved from endocrine perspective as she wants to go home. To call with any questions or to return to ED if she feels sick again.
--- NOTE | 2018-07-15 12:13 | PN ---
Physical Exam: SUBJECTIVE: Patient seen and examined at bedside. Complains of head and upper respiratory congestion, myalgias, malaise. Clinically improved. OBJECTIVE: Vital Signs Period Temp Pulse Resp BP Sys/Encarnacion Pulse Ox Last 24 Hr 97.7 F-98.6 F 79-108 14-20 91-116/55-65 99-100 GENERAL: A&Ox3 HEAD: NC/AT EYES: PERRLA, EOMI ENT: MMM NECK: Trachea midline, full range of motion, supple. LUNGS: Breath sounds equal, clear to auscultation bilaterally, no wheezes, no crackles, no accessory muscle use. HEART: Regular rate and rhythm, S1, S2 without murmur, rub or gallop. ABDOMEN: Soft, nontender, nondistended, normoactive bowel sounds, no guarding, no rebound, no hepatosplenomegaly, no masses. EXTREMITIES: 2+ pulses, warm, well-perfused, no edema. 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 SKIN: Warm, dry, normal turgor, no rashes or lesions noted Laboratory Results - last 24 hr 07/14/18 07/14/18 07/14/18 13:34 13:51 13:51 WBC RBC Hgb Hct MCV MCH MCHC RDW Plt Count MPV Absolute Neuts (auto) Neutrophils % Lymphocytes % Monocytes % Eosinophils % Basophils % Nucleated RBC % PT with INR INR PTT (Actin FS) Anticoagulation Therapy Puncture Site ABG pH ABG pCO2 at Pt Temp ABG pO2 at Pt Temp ABG HCO3 ABG O2 Sat (Measured) ABG O2 Content ABG Base Excess Kelvin Test Carboxyhemoglobin Methemoglobin O2 Delivery Device Oxygen Flow Rate Vent Mode Vent Rate Mechanical Rate Pressure Support Vent Sodium Potassium Chloride Carbon Dioxide Anion Gap BUN Creatinine Creat Clearance w eGFR POC Glucometer [phone] Random Glucose Serum Osmolality Lactic Acid 1.7 Calcium Phosphorus Magnesium Total Bilirubin AST ALT Alkaline Phosphatase Creatine Kinase Troponin I Total Protein Albumin Lipase Serum , Qual Urine Color Urine Appearance Urine pH Ur Specific [place] Urine Protein Urine Glucose (UA) Urine Ketones Urine Blood Urine Nitrite Urine Bilirubin Urine Acetone Urine Urobilinogen Ur Leukocyte Esterase Urine WBC (Auto) Urine RBC (Auto) Ur Epithelial Cells Urine Bacteria Urine Mucus Acetone, Qual Influenza A (Rapid) Negative Influenza B (Rapid) Negative RSV Rapid 07/14/18 07/14/18 07/14/18 13:51 13:51 13:51 WBC RBC Hgb Hct MCV MCH MCHC RDW Plt Count MPV Absolute Neuts (auto) Neutrophils % Lymphocytes % Monocytes % Eosinophils % Basophils % Nucleated RBC % PT with INR INR PTT (Actin FS) Anticoagulation Therapy No Result Required. Puncture Site Right radial ABG pH 7.21 L* ABG pCO2 at Pt Temp 16.7 L* ABG pO2 at Pt Temp 212.0 H* ABG HCO3 6.4 L* ABG O2 Sat (Measured) 99.0 H ABG O2 Content 19.5 ABG Base Excess -20.2 L* Kelvin Test No Result Required. Carboxyhemoglobin 0.6 Methemoglobin 0.5 O2 Delivery Device No Result Required. Oxygen Flow Rate Yes Vent Mode No Result Required. Vent Rate No Result Required. Mechanical Rate No Result Required. Pressure Support Vent No Result Required. Sodium Potassium Chloride Carbon Dioxide Anion Gap BUN Creatinine Creat Clearance w eGFR POC Glucometer Random Glucose Serum Osmolality Lactic Acid Calcium Phosphorus Magnesium Total Bilirubin AST ALT Alkaline Phosphatase Creatine Kinase Troponin I Total Protein Albumin Lipase Serum , Qual Negative Urine Color Urine Appearance Urine pH Ur Specific [place] Urine Protein Urine Glucose (UA) Urine Ketones Urine Blood Urine Nitrite Urine Bilirubin Urine Acetone Urine Urobilinogen Ur Leukocyte Esterase Urine WBC (Auto) Urine RBC (Auto) Ur Epithelial Cells Urine Bacteria Urine Mucus Acetone, Qual Positive moderate 2+ H Influenza A (Rapid) Influenza B (Rapid) RSV Rapid 07/14/18 07/14/18 07/14/18 13:58 13:58 16:41 WBC 8.1 RBC 4.46 Hgb 14.0 Hct 39.8 MCV 89.2 MCH 31.3 MCHC 35.1 RDW 13.0 Plt Count 157 D MPV 10.8 D Absolute Neuts (auto) 7.0 Neutrophils % 86.6 H D Lymphocytes % 5.3 L D Monocytes % 7.4 Eosinophils % 0.1 D Basophils % 0.6 Nucleated RBC % 0 PT with INR INR PTT (Actin FS) Anticoagulation Therapy Puncture Site ABG pH ABG pCO2 at Pt Temp ABG pO2 at Pt Temp ABG HCO3 ABG O2 Sat (Measured) ABG O2 Content ABG Base Excess Kelvin Test Carboxyhemoglobin Methemoglobin O2 Delivery Device Oxygen Flow Rate Vent Mode Vent Rate Mechanical Rate Pressure Support Vent Sodium 133 L Potassium 4.2 Chloride 108 H Carbon Dioxide 7 L Anion Gap 18 H BUN 12 Creatinine 0.9 Creat Clearance w eGFR > 60 POC Glucometer 221.69186 Random Glucose 341 H* Serum Osmolality Lactic Acid Calcium 7.5 L Phosphorus Magnesium 1.8 Total Bilirubin 1.4 H AST 17 ALT 16 Alkaline Phosphatase 90 Creatine Kinase 41 Troponin I < 0.02 Total Protein 7.3 Albumin 4.1 Lipase 89 Serum , Qual Urine Color Urine Appearance Urine pH Ur Specific [place] Urine Protein Urine Glucose (UA) Urine Ketones Urine Blood Urine Nitrite Urine Bilirubin Urine Acetone Urine Urobilinogen Ur Leukocyte Esterase Urine WBC (Auto) Urine RBC (Auto) Ur Epithelial Cells Urine Bacteria Urine Mucus Acetone, Qual Influenza A (Rapid) Influenza B (Rapid) RSV Rapid 07/14/18 07/14/18 07/14/18 17:15 17:40 17:46 WBC RBC Hgb Hct MCV MCH MCHC RDW Plt Count MPV Absolute Neuts (auto) Neutrophils % Lymphocytes % Monocytes % Eosinophils % Basophils % Nucleated RBC % PT with INR INR PTT (Actin FS) Anticoagulation Therapy Puncture Site ABG pH ABG pCO2 at Pt Temp ABG pO2 at Pt Temp ABG HCO3 ABG O2 Sat (Measured) ABG O2 Content ABG Base Excess Kelvin Test Carboxyhemoglobin Methemoglobin O2 Delivery Device Oxygen Flow Rate Vent Mode Vent Rate Mechanical Rate Pressure Support Vent Sodium 137 Potassium 3.8 Chloride 111 H Carbon Dioxide 9 L Anion Gap 17 H BUN 11 Creatinine 0.9 Creat Clearance w eGFR > 60 POC Glucometer 239.12174 Random Glucose 219 H Serum Osmolality 292 Lactic Acid Calcium 6.8 L* Phosphorus Magnesium Total Bilirubin AST ALT Alkaline Phosphatase Creatine Kinase Troponin I Total Protein Albumin 4.0 Lipase Serum , Qual Urine Color Ltyellow Urine Appearance Slcloudy Urine pH 5.0 Ur Specific [place] 1.021 Urine Protein 1+ H Urine Glucose (UA) 3+ H Urine Ketones 2+ H Urine Blood 1+ H Urine Nitrite Negative Urine Bilirubin Negative Urine Acetone Urine Urobilinogen Negative Ur Leukocyte Esterase Negative Urine WBC (Auto) 2 Urine RBC (Auto) None Ur Epithelial Cells Rare Urine Bacteria Rare Urine Mucus Rare Acetone, Qual Influenza A (Rapid) Influenza B (Rapid) RSV Rapid 07/14/18 07/14/18 07/14/18 20:11 21:00 21:00 WBC RBC Hgb Hct MCV MCH MCHC RDW Plt Count MPV Absolute Neuts (auto) Neutrophils % Lymphocytes % Monocytes % Eosinophils % Basophils % Nucleated RBC % PT with INR 12.70 INR 1.08 PTT (Actin FS) 26.9 Anticoagulation Therapy Puncture Site ABG pH ABG pCO2 at Pt Temp ABG pO2 at Pt Temp ABG HCO3 ABG O2 Sat (Measured) ABG O2 Content ABG Base Excess Kelvin Test Carboxyhemoglobin Methemoglobin O2 Delivery Device Oxygen Flow Rate Vent Mode Vent Rate Mechanical Rate Pressure Support Vent Sodium 135 L Potassium 4.1 Chloride 111 H Carbon Dioxide 15 L Anion Gap 9 BUN 7 Creatinine 0.8 Creat Clearance w eGFR > 60 POC Glucometer 243.48558 Random Glucose 284 H Serum Osmolality Lactic Acid Calcium 6.6 L* Phosphorus Magnesium Total Bilirubin AST ALT Alkaline Phosphatase Creatine Kinase Troponin I Total Protein Albumin Lipase Serum , Qual Urine Color Urine Appearance Urine pH Ur Specific [place] Urine Protein Urine Glucose (UA) Urine Ketones Urine Blood Urine Nitrite Urine Bilirubin Urine Acetone Urine Urobilinogen Ur Leukocyte Esterase Urine WBC (Auto) Urine RBC (Auto) Ur Epithelial Cells Urine Bacteria Urine Mucus Acetone, Qual Influenza A (Rapid) Influenza B (Rapid) RSV Rapid 07/14/18 07/14/18 07/14/18 21:00 21:45 23:05 WBC RBC Hgb Hct MCV MCH MCHC RDW Plt Count MPV Absolute Neuts (auto) Neutrophils % Lymphocytes % Monocytes % Eosinophils % Basophils % Nucleated RBC % PT with INR INR PTT (Actin FS) Anticoagulation Therapy Puncture Site ABG pH ABG pCO2 at Pt Temp ABG pO2 at Pt Temp ABG HCO3 ABG O2 Sat (Measured) ABG O2 Content ABG Base Excess Kelvin Test Carboxyhemoglobin Methemoglobin O2 Delivery Device Oxygen Flow Rate Vent Mode Vent Rate Mechanical Rate Pressure Support Vent Sodium Potassium Chloride Carbon Dioxide Anion Gap BUN Creatinine Creat Clearance w eGFR POC Glucometer 313.94854 238.02230 Random Glucose Serum Osmolality Lactic Acid Calcium Phosphorus Magnesium Total Bilirubin AST ALT Alkaline Phosphatase Creatine Kinase Troponin I Total Protein Albumin Lipase Serum , Qual Urine Color Urine Appearance Urine pH Ur Specific [place] Urine Protein Urine Glucose (UA) Urine Ketones Urine Blood Urine Nitrite Urine Bilirubin Urine Acetone Cancelled Urine Urobilinogen Ur Leukocyte Esterase Urine WBC (Auto) Urine RBC (Auto) Ur Epithelial Cells Urine Bacteria Urine Mucus Acetone, Qual Negative L Influenza A (Rapid) Influenza B (Rapid) RSV Rapid 07/15/18 07/15/18 07/15/18 00:02 00:20 01:33 WBC RBC Hgb Hct MCV MCH MCHC RDW Plt Count MPV Absolute Neuts (auto) Neutrophils % Lymphocytes % Monocytes % Eosinophils % Basophils % Nucleated RBC % PT with INR INR PTT (Actin FS) Anticoagulation Therapy Puncture Site ABG pH ABG pCO2 at Pt Temp ABG pO2 at Pt Temp ABG HCO3 ABG O2 Sat (Measured) ABG O2 Content ABG Base Excess Kelvin Test Carboxyhemoglobin Methemoglobin O2 Delivery Device Oxygen Flow Rate Vent Mode Vent Rate Mechanical Rate Pressure Support Vent Sodium Potassium Chloride Carbon Dioxide Anion Gap BUN Creatinine Creat Clearance w eGFR POC Glucometer 211.75579 176.68508 Random Glucose Serum Osmolality Lactic Acid Calcium Phosphorus Magnesium Total Bilirubin AST ALT Alkaline Phosphatase Creatine Kinase Troponin I Total Protein Albumin Lipase Serum , Qual Urine Color Urine Appearance Urine pH Ur Specific [place] Urine Protein Urine Glucose (UA) Urine Ketones Urine Blood Urine Nitrite Urine Bilirubin Urine Acetone Urine Urobilinogen Ur Leukocyte Esterase Urine WBC (Auto) Urine RBC (Auto) Ur Epithelial Cells Urine Bacteria Urine Mucus Acetone, Qual Influenza A (Rapid) Influenza B (Rapid) RSV Rapid Negative 07/15/18 07/15/18 07/15/18 02:56 04:21 05:26 WBC RBC Hgb Hct MCV MCH MCHC RDW Plt Count MPV Absolute Neuts (auto) Neutrophils % Lymphocytes % Monocytes % Eosinophils % Basophils % Nucleated RBC % PT with INR INR PTT (Actin FS) Anticoagulation Therapy Puncture Site ABG pH ABG pCO2 at Pt Temp ABG pO2 at Pt Temp ABG HCO3 ABG O2 Sat (Measured) ABG O2 Content ABG Base Excess Kelvin Test Carboxyhemoglobin Methemoglobin O2 Delivery Device Oxygen Flow Rate Vent Mode Vent Rate Mechanical Rate Pressure Support Vent Sodium Potassium Chloride Carbon Dioxide Anion Gap BUN Creatinine Creat Clearance w eGFR POC Glucometer 158.26144 174.53016 185.43718 Random Glucose Serum Osmolality Lactic Acid Calcium Phosphorus Magnesium Total Bilirubin AST ALT Alkaline Phosphatase Creatine Kinase Troponin I Total Protein Albumin Lipase Serum , Qual Urine Color Urine Appearance Urine pH Ur Specific [place] Urine Protein Urine Glucose (UA) Urine Ketones Urine Blood Urine Nitrite Urine Bilirubin Urine Acetone Urine Urobilinogen Ur Leukocyte Esterase Urine WBC (Auto) Urine RBC (Auto) Ur Epithelial Cells Urine Bacteria Urine Mucus Acetone, Qual Influenza A (Rapid) Influenza B (Rapid) RSV Rapid 07/15/18 07/15/18 07/15/18 05:35 05:35 06:20 WBC 3.2 L RBC 3.69 Hgb 11.0 Hct 32.3 L D MCV 87.5 MCH 29.9 MCHC 34.2 RDW 12.7 Plt Count 117 L D MPV 10.1 Absolute Neuts (auto) 1.6 Neutrophils % 49.8 D Lymphocytes % 31.7 D Monocytes % 17.0 H D Eosinophils % 1.1 D Basophils % 0.4 Nucleated RBC % 0 PT with INR INR PTT (Actin FS) Anticoagulation Therapy Puncture Site ABG pH ABG pCO2 at Pt Temp ABG pO2 at Pt Temp ABG HCO3 ABG O2 Sat (Measured) ABG O2 Content ABG Base Excess Kelvin Test Carboxyhemoglobin Methemoglobin O2 Delivery Device Oxygen Flow Rate Vent Mode Vent Rate Mechanical Rate Pressure Support Vent Sodium 138 Potassium 3.7 Chloride 113 H Carbon Dioxide 17 L Anion Gap 8 BUN 5 L Creatinine 0.6 Creat Clearance w eGFR > 60 POC Glucometer 179.66084 Random Glucose 158 H Serum Osmolality Lactic Acid Calcium 7.0 L Phosphorus 1.9 L Magnesium 1.7 L Total Bilirubin 0.6 AST 8 L ALT 12 L Alkaline Phosphatase 57 Creatine Kinase Troponin I Total Protein 5.0 L Albumin 2.7 L Lipase Serum , Qual Urine Color Urine Appearance Urine pH Ur Specific [place] Urine Protein Urine Glucose (UA) Urine Ketones Urine Blood Urine Nitrite Urine Bilirubin Urine Acetone Urine Urobilinogen Ur Leukocyte Esterase Urine WBC (Auto) Urine RBC (Auto) Ur Epithelial Cells Urine Bacteria Urine Mucus Acetone, Qual Influenza A (Rapid) Influenza B (Rapid) RSV Rapid 07/15/18 07:42 WBC RBC Hgb Hct MCV MCH MCHC RDW Plt Count MPV Absolute Neuts (auto) Neutrophils % Lymphocytes % Monocytes % Eosinophils % Basophils % Nucleated RBC % PT with INR INR PTT (Actin FS) Anticoagulation Therapy Puncture Site ABG pH ABG pCO2 at Pt Temp ABG pO2 at Pt Temp ABG HCO3 ABG O2 Sat (Measured) ABG O2 Content ABG Base Excess Kelvin Test Carboxyhemoglobin Methemoglobin O2 Delivery Device Oxygen Flow Rate Vent Mode Vent Rate Mechanical Rate Pressure Support Vent Sodium Potassium Chloride Carbon Dioxide Anion Gap BUN Creatinine Creat Clearance w eGFR POC Glucometer 171.14616 Random Glucose Serum Osmolality Lactic Acid Calcium Phosphorus Magnesium Total Bilirubin AST ALT Alkaline Phosphatase Creatine Kinase Troponin I Total Protein Albumin Lipase Serum , Qual Urine Color Urine Appearance Urine pH Ur Specific [place] Urine Protein Urine Glucose (UA) Urine Ketones Urine Blood Urine Nitrite Urine Bilirubin Urine Acetone Urine Urobilinogen Ur Leukocyte Esterase Urine WBC (Auto) Urine RBC (Auto) Ur Epithelial Cells Urine Bacteria Urine Mucus Acetone, Qual Influenza A (Rapid) Influenza B (Rapid) RSV Rapid Active Medications Generic Name Dose Route Start Last Admin Trade Name Freq PRN Reason Stop Dose Admin Acetaminophen 1,000 mg 07/14/18 21:16 07/14/18 21:29 Ofirmev Injection - IVPB 1,000 mg Q6H PRN Administration PAIN LEVEL 1-5 Albuterol Sulfate 1 amp 07/14/18 20:04 Ventolin 0.083% Nebulizer Soln - NEB Q6H PRN SHORT OF BREATH/WHEEZING Azithromycin 250 mg 07/16/18 10:00 Zithromax - PO 07/19/18 10:01 DAILY ANEESH Guaifenesin/Codeine Phosphate 5 ml 07/15/18 09:20 Robitussin Ac - PO BID PRN COUGH Insulin Human Regular 100 100 mls @ 3.53 mls/hr 07/14/18 17:28 07/15/18 05:00 units/ Sodium Chloride IVPB 0.02 units/kg/hr TITR ANEESH 2 mls/hr Titration Protocol 0.05 UNITS/KG/HR Potassium Chloride/Dextrose/Sod Cl 20 meq in 1,000 mls @ 150 mls/hr 07/14/18 18:45 07/14/18 18:40 D5-1/2ns+20 Meq Kcl - IV 150 mls/hr ASDIR ANEESH Administration Potassium Phosphate 30 mm/ 260 mls @ 43.33 mls/hr 07/15/18 10:00 07/15/18 10: 29 Sodium Chloride IVPB 07/15/18 16:00 43.33 mls/hr ONCE ONE Administration 30 MM/6 HR Insulin Aspart 1 vial 07/14/18 18:00 07/14/18 21:28 Novolog Vial Sliding Scale - SQ Not Given Q4HPO ANEESH Protocol Ondansetron HCl 4 mg 07/14/18 17:28 Zofran Injection IVPB Q6H PRN NAUSEA Oxymetazoline HCl 1 spray 07/15/18 05:57 07/15/18 06:29 Afrin - NS 1 spray Q12H PRN Administration NASAL CONGESTION ASSESSMENT/PLAN: 37 y/o F w/ PMHx IDDM on home insulin pump, endometriosis, Chiari malformation s /p craniotomy, admitted for DKA likely 2/2 acute viral syndrome #endocrine -AG closed, bicarb > 15, glucose controlled -tolerating PO -to restart insulin pump, d/c insulin gtt -electrolytes repleted #respiratory -improving, cough medicine and decongestant as needed #FEN -D51/2NS + 20meqK, encourage PO intake -monitor and replete electrolytes -diabetic diet #PPx -DVT: SCDs -GI: not indicated #code -full #dispo -for d/c home Visit type - Emergency Visit Emergency Visit: No - New Patient This patient is new to me today: Yes Date on this admission: 07/15/18 - Critical Care Critical Care patient: Yes Total Critical Care Time (in minutes): 40 Critical Care Statement: The care of this patient involved high complexity decision making to prevent further life threatening deterioration of the patient 's condition and/or to evaluate & treat vital organ system(s) failure or risk of failure.
[2018-07-15 13:17] LABS: ANION GAP 7 MMOL/L (8-16); BLOOD UREA NITROGEN 4 mg/dL (7-18); CALCIUM 7.4 mg/dL (8.5-10.1); CHLORIDE 110 mmol/L (98-107); CO2 21 mmol/L (21-32); CREATININE 0.6 mg/dL (0.55-1.3); GLUCOSE,RANDOM 190 mg/dL (74-106); POTASSIUM 3.7 mmol/L (3.5-5.1); SODIUM 139 mmol/L (136-145)
[2018-07-15] MEDS ORDERED: Insulin (LOG) Aspart 100 UNITS/ML VIAL SQ ONE (14:00)
[2018-07-15] MEDS ORDERED: NAPH,MB-DB/K PH,MBDB POWDER PACKET PO ONE (14:15)
[2018-07-15 15:38] VITALS: BP 106/58
[2018-07-16] MEDS ORDERED: AZITHROMYCIN 250 MG TABLET PO SCH (10:00)
== END 2018-07-15 15:39 | disposition home or self-care (01) | DRG 637 ==
LOC: JER 13:13 → JERBED 14:46 → JICU 15:21
PROVIDERS: ADMIT Family Medicine; ATTEND Family Medicine
DX: E10.10 Type 1 diabetes mellitus with ketoacidosis without coma (principal); I82.0 Budd-Chiari syndrome; N80.9 Endometriosis, unspecified; F17.210 Nicotine dependence, cigarettes, uncomplicated; B34.9 Viral infection, unspecified; E10.65 Type 1 diabetes mellitus with hyperglycemia
CPT/HCPCS: 36415; 36600; 71045-TC-FY; 80048; 80053; 81003; 81015; 82009; 82040; 82375; 82550; 82803; 82962; 83050; 83605; 83690; 83735; 83930; 84100; 84484; 84703; 85025; 85610; 85730; 87040; 87086; 87804; 87807; 93005; 93010; 99283-25; J0131; J7030; Q0162

== ENCOUNTER 2019-02-24 10:32 | Emergency (ER) | payer OTHER ==
[2019-02-24 10:46] VITALS: BP 125/67; PULSE 82; TEMP 97.7; BMI 26.6
[2019-02-24] MEDS ORDERED: SODIUM CHLORIDE 1,000 ML IV ONE (10:47)
[2019-02-24] MEDS ORDERED: FAMOTIDINE 20 MG/50 ML IVPB 20 MG/50 ML MG IVPB ONE ×2 (10:48→11:11)
[2019-02-24] MEDS ORDERED: ONDANSETRON 4 MG/2 ML VIAL IVPB ONE (10:48)
[2019-02-24] MEDS ORDERED: ONDANSETRON 4 MG/2 ML VIAL ONE (11:11)
[2019-02-24 11:22] LABS: VENOUS PC02 38.4 mmHg (41-51); VENOUS PH 7.35 (7.31-7.41); VENOUS PO2 47.8 mmHg (30-40)
[2019-02-24 11:23] LABS: BASO % 0.8 % (0-2.0); EOS % 0.6 % (0-4.5); HEMATOCRIT 41.2 % (32.4-45.2); HEMOGLOBIN 14.2 GM/dL (10.7-15.3); LYMPH % 14.5 % (8-40); MCH 30.6 pg (25.7-33.7); MCHC 34.5 g/dl (32.0-36.0); MEAN CELL VOLUME 88.8 fl (80-96); MEAN PLT VOLUME 10.6 fl (7.5-11.1); MONO % 4.4 % (3.8-10.2); NEUT % 79.7 % (42.8-82.8); PLATELET COUNT 189 K/MM3 (134-434); RBC 4.64 M/mm3 (3.60-5.2); RDW 12.6 % (11.6-15.6); WHITE BLOOD COUNT 8.4 K/mm3 (4.0-10.0)
--- NOTE | 2019-02-24 11:36 | PDOC ---
History of Present Illness - General Chief Complaint: Blood Sugar Problem Stated Complaint: NAUSEA,VOMITING Time Seen by Provider: 02/24/19 10:41 History Source: Patient Exam Limitations: No Limitations - History of Present Illness Initial Comments: 02/24/19 11:30 38y/o F h/o IDDM p/w nausea, decreased appetite, intermittent palpitations. Pt was in [facility], yesterday began developing intermittent palpitations/fluttering chest sensation without pain/sob. 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 This morning awoke with nausea and decreased appetite followed by nbnb emesis, noted insulin pump was dislodged, glucose elevated at about 200. no f/c, no cough, epigastric abdominal pain/burning since emesis, otherwise no d/c. no urinary complaints. no leg swelling. Past History - Past Medical History Allergies/Adverse Reactions: Allergies Allergy/AdvReac Type Severity Reaction Status Date / Time No Known Allergies Allergy Verified 09/17/17 17:14 Home Medications: Ambulatory Orders Insulin Pump Cartridge [Cartridge Stamped] 1 each SQ ASDIR 01/08/15 Dulaglutide [Trulicity] 1.5 mg SQ WEEKLY 09/17/17 Oxymetazoline 0.05% Nasal Soln [Afrin -] 1 spray NS Q12H PRN spray 07/15/18 Anemia: No Asthma: No Cancer: No Cardiac Disorders: Yes CVA: No COPD: No CHF: No Dementia: No Diabetes: Yes GI Disorders: No Disorders: No HTN: No Hypercholesterolemia: No Liver Disease: No Seizures: No Thyroid Disease: No - Surgical History Abdominal Surgery: No Appendectomy: No Cardiac Surgery: No Cholecystectomy: No Lung Surgery: No Neurologic Surgery: Yes (CRANITOMY, LAMINECTOMY;CHIARIMAL FORMATION) - Suicide/Smoking/Psychosocial Hx Smoking Status: Yes Smoking History: Former smoker Have you smoked in the past 12 months: No Number of Cigarettes Smoked Daily: 1 Information on smoking cessation initiated: No 'Breaking Loose' booklet given: 07/14/18 Hx Alcohol Use: No Drug/Substance Use Hx: No Substance Use Type: None Hx Substance Use Treatment: No Review of Systems - Review of Systems Constitutional: No: Chills, Fever Respiratory: No: Shortness of Breath, SOB with Exertion Cardiac (ROS): Yes: Palpitations. No: Chest Pain, Edema ABD/GI: Yes: See HPI, Nausea, Vomiting. No: Constipated, Diarrhea : No: Dysuria, Frequency Integumentary: Yes: Other (abrasion to R pearson after mechanical trip and fall on pothole yesterday) Neurological: No: Headache *Physical Exam - Vital Signs Last Vital Signs Temp Pulse Resp BP Pulse Ox 97.7 F 82 17 125/67 100 02/24/19 10:40 02/24/19 10:40 02/24/19 10:40 02/24/19 10:40 02/24/19 10:40 - Physical Exam Comments: 02/24/19 11:34 Afebrile, vital signs stable GENERAL: The patient is awake, alert, and fully oriented, in no acute distress. HEAD: Normal with no signs of trauma. EYES: PERRL, EOMI, sclera anicteric, conjunctiva clear. ENT: oropharynx clear. Dry mucous membranes. NECK: Normal range of motion, supple without JVD. LUNGS: Breath sounds equal, clear to auscultation bilaterally. No wheeze/ crackles. HEART: Regular rate and rhythm, normal S1 and S2 without murmur or rub. No ectopy noted during exam. ABDOMEN: Soft/nondistended. Epigastric discomfort to palpation without guarding or rebound. No palpable masses. No hepatosplenomegaly. EXTREMITIES: Normal range of motion, no edema. 2+ distal pulses. No cords, erythema, or tenderness. NEUROLOGICAL: Cranial nerves II through XII grossly intact. Normal speech, normal gait. PSYCH: Normal mood, normal affect. SKIN: R lateral pearson superficial abrasions without cellulitis. Otherwise warm, Dry, no rashes or lesions noted. Heart Score/ECG Review #1 ECG reviewed & interpreted by me at: 11:08 General ECG Interpretation: Sinus Rhythm, Normal Rate (75), Normal Intervals ( qtc 426), No acute ischemic changes ED Treatment Course - LABORATORY CBC & Chemistry Diagram: 02/24/19 10:55 02/24/19 10:55 - ADDITIONAL ORDERS Additional order review: Laboratory Results 02/24/19 10:55 VBG pH 7.35 POC VBG pCO2 38.4 L POC VBG pO2 47.8 H VBG HCO3 20.6 L VBG O2 Sat (Pooja) 79.4 VBG Base Excess -4.1 L 02/24/19 10:55 RBC 4.64 MCV 88.8 MCHC 34.5 RDW 12.6 MPV 10.6 Neutrophils % 79.7 D Lymphocytes % 14.5 D Monocytes % 4.4 Eosinophils % 0.6 Basophils % 0.8 - Medications Given in the ED: ED Medications Discontinued Medications Generic Name Dose Route Start Last Admin Trade Name Gio PRN Reason Stop Dose Admin Famotidine/Sodium Chloride 20 mg in 50 mls @ 100 mls/hr 02/24/19 10:48 11:22 Pepcid 20 Mg Premixed Ivpb - IVPB 02/24/19 11:17 100 mls/hr ONCE ONE Administration Ondansetron HCl 8 mg 02/24/19 10:48 02/24/19 11:22 Zofran Injection IVPB 02/24/19 10:49 8 mg ONCE ONE Administration Medical Decision Making - Medical Decision Making 02/24/19 11:38 38y/o F IDDM with fluttering palpitations yesterday, today with n/v/ hyperglycemia. HD stable here without ectopy on exam, slight dehydration. labs including vbg ekg iv fluid rehydration, pepcid/nausea for GI upset reassess 02/24/19 12:48 cbc wnl, no leukocytosis. chem notable for hyperglycemia (insulin pump restored), mild dehydration with hypo-Na/Cl, normal AG, normal pH so not consistent with DKA total bili elevated, but direct and Lipase negative, so indirect bilirubemia. s/p 1.5L IV fluids, nausea improved more after reglan. complete 2L then can d/c *DC/Admit/Observation/Transfer Diagnosis at time of Disposition: IDDM (insulin dependent diabetes mellitus) Nausea and vomiting Qualifiers: Vomiting type: unspecified Vomiting Intractability: non-intractable Qualified Code(s): R11.2 - Nausea with vomiting, unspecified - Discharge Dispostion Disposition: HOME Condition at time of disposition: Improved - Referrals Referrals: Sabino Robledo MD [Primary Care Provider] - - Patient Instructions Printed Discharge Instructions: DI for Hyperglycemia -- Adult Additional Instructions: Activity as tolerated. Stay hydrated. Advance diet as tolerated. Blood tests today showed elevated glucose levels and dehydration without other acute abnormalities. Closely monitor blood sugar levels and maintain insulin pump. Pepcid 20mg daily as needed for stomach upset. Continue your medications as previously prescribed by your physician. You should follow up with Dr. Robledo and Dr. Cantu as soon as possible regarding today's emergency department visit. Return to the emergency department for any new or concerning symptoms, particularly persistent vomiting or dehydration, uncontrollable elevated sugar levels, abdominal pain, fever/chills. - Post Discharge Activity
--- NOTE | 2019-02-24 11:48 | EKG ---
Test Reason : Blood Pressure : / mmHG Vent. Rate : 075 BPM Atrial Rate : 075 BPM P-R Int : 166 ms QRS Dur : 090 ms QT Int : 382 ms P-R-T Axes : 062 055 036 degrees QTc Int : 426 ms NORMAL SINUS RHYTHM POSSIBLE LEFT ATRIAL ENLARGEMENT BORDERLINE ECG WHEN COMPARED WITH ECG OF 14-JUL-2018 14:17, NO SIGNIFICANT CHANGE WAS FOUND Confirmed by IVAN LYNCH MD ([id number]) on 02/24/2019 11:47:46 AM Referred By: Confirmed By:IVAN LYNCH MD
[2019-02-24 11:52] LABS: ALBUMIN 4.5 g/dl (3.4-5.0); BILIRUBIN,TOTAL 2.5 mg/dL (0.2-1); BLOOD UREA NITROGEN 14.4 mg/dL (7-18); CALCIUM 10.1 mg/dL (8.5-10.1); CREATININE 0.9 mg/dL (0.55-1.3); MAGNESIUM 2.1 mg/dL (1.8-2.4); POTASSIUM 4.5 mmol/L (3.5-5.1); TOT PROT 7.7 g/dl (6.4-8.2)
[2019-02-24] MEDS ORDERED: METOCLOPRAMIDE HCL INJECTION 10 MG/2 ML VIAL IVPB ONE (12:08)
[2019-02-24] MEDS ORDERED: METOCLOPRAMIDE HCL INJECTION 10 MG/2 ML VIAL ONE (12:24)
[2019-02-24 12:41] LABS: BILIRUBIN,DIRECT 0.5 mg/dL (0.0-0.2)
== END 2019-02-24 13:28 | disposition home or self-care (01) ==
LOC: JER 10:32
PROC: 3E0337Z Introduction of Electrolytic and Water Balance Substance into Peripheral Vein, Percutaneous Approach (ICD-10-PCS; principal; 2019-02-24)
PROC: 3E033GC Introduction of Other Therapeutic Substance into Peripheral Vein, Percutaneous Approach (ICD-10-PCS; 2019-02-24)
PROC: 3E033GC Introduction of Other Therapeutic Substance into Peripheral Vein, Percutaneous Approach (ICD-10-PCS; 2019-02-24)
PROC: 3E033GC Introduction of Other Therapeutic Substance into Peripheral Vein, Percutaneous Approach (ICD-10-PCS; 2019-02-24)
DX: T85.624A Displacement of insulin pump, initial encounter (principal); E10.65 Type 1 diabetes mellitus with hyperglycemia; Z79.4 Long term (current) use of insulin; Z96.41 Presence of insulin pump (external) (internal)
CPT/HCPCS: 36415; 80053; 82248; 82550; 82803; 83690; 83735; 84484; 85025; 93005; 93010; 99283-25; J7030

== ENCOUNTER 2021-03-06 11:02 | Emergency (ER) | payer OTHER ==
[2021-03-06 11:08] VITALS: BMI 25.4
[2021-03-06] MEDS ORDERED: INSULIN REGULAR HUMAN 100 UNITS/ML *VIAL* (FOR IVP) IVPUSH ONE (11:25)
[2021-03-06] MEDS ORDERED: SODIUM CHLORIDE 1,000 ML IV STA (11:25)
[2021-03-06] MEDS ORDERED: ONDANSETRON 4 MG/2 ML VIAL IVPUSH ONE (11:28)
[2021-03-06] MEDS ORDERED: ONDANSETRON 4 MG/2 ML VIAL ONE (11:32)
[2021-03-06 11:34] LABS: BASO % 0.6 % (0-2.0); EOS % 0.4 % (0-4.5); HEMATOCRIT 43.8 % (32.4-45.2); HEMOGLOBIN 15.3 GM/dL (10.7-15.3); LYMPH % 15.6 % (8-40); MCH 30.8 pg (25.7-33.7); MEAN PLT VOLUME 9.6 fl (7.5-11.1); MONO % 5.6 % (3.8-10.2); NEUT % 77.8 % (42.8-82.8); PLATELET COUNT 238 10^3/uL (134-434); RBC 4.98 M/mm3 (3.60-5.2); RDW 13.5 % (11.6-15.6); WHITE BLOOD COUNT 6.5 K/mm3 (4.0-10.0)
[2021-03-06 11:41] LABS: INR 0.97 (0.83-1.09); PROTHROMBIN TIME (PATIENT) 11.9 SEC (9.7-13.0)
[2021-03-06 11:43] LABS: ACTIVATED PTT 28.5 SECONDS (25.2-36.5); CHLORIDE 104 mmol/L (98-107); SODIUM 135 mmol/L (136-145)
[2021-03-06 11:46] LABS: ALBUMIN 4.6 g/dl (3.4-5.0); CALCIUM 9.8 mg/dL (8.5-10.1); GLUCOSE,RANDOM 206 mg/dL (74-106)
[2021-03-06 11:47] LABS: ANION GAP 14 MMOL/L (8-16); CO2 17 mmol/L (21-32)
[2021-03-06 11:48] LABS: VENOUS O2 SATURATION 49.2 % (70-80); VENOUS PH 7.272 (7.310-7.410)
[2021-03-06 11:49] LABS: CREATININE 1.1 mg/dL (0.55-1.3); SGOT/AST 9 U/L (15-37); SGPT/ALT 22 U/L (13-61)
[2021-03-06 11:51] LABS: BILIRUBIN,TOTAL 1.7 mg/dL (0.2-1); TOT PROT 8.4 g/dl (6.4-8.2)
[2021-03-06 11:52] LABS: ALK PHOS 105 U/L (45-117)
[2021-03-06] MEDS ORDERED: ACETAMINOPHEN 1000 MG/100 ML VIAL (NON FORMULARY) IVPB ONE (12:01)
[2021-03-06] MEDS ORDERED: ACETAMINOPHEN INJECTION 100 ML IVPB ONE (12:05)
[2021-03-06 13:20] LABS: PHOSPHOROUS 3.6 mg/dL (2.5-4.9)
[2021-03-06] MEDS ORDERED: SODIUM CHLORIDE 0.9% 500 ML INFUS.BAG IV ONE (13:59)
[2021-03-06] MEDS ORDERED: METOCLOPRAMIDE HCL INJECTION 10 MG/2 ML VIAL IVPUSH ONE (14:06)
[2021-03-06] MEDS ORDERED: METOCLOPRAMIDE HCL INJECTION 10 MG/2 ML VIAL ONE (14:06)
[2021-03-06 16:53] LABS: VENOUS BASE EXCESS -11.4 mmol/L (-2-2); VENOUS O2 SATURATION 31.3 % (70-80); VENOUS PCO2 37.1 mmHg (38-52); VENOUS PH 7.233 (7.310-7.410)
[2021-03-06 17:17] LABS: BLOOD UREA NITROGEN 9.3 mg/dL (7-18)
[2021-03-06 17:20] LABS: CALCIUM 7.9 mg/dL (8.5-10.1); CREATININE 0.6 mg/dL (0.55-1.3)
[2021-03-06 18:57] VITALS: BP 110/68; PULSE 89; TEMP 98.5
== END 2021-03-06 19:04 | disposition home or self-care (01) ==
LOC: JER 11:02
PROC: 3E013VG Introduction of Insulin into Subcutaneous Tissue, Percutaneous Approach (ICD-10-PCS; principal; 2021-03-06)
PROC: 3E033NZ Introduction of Analgesics, Hypnotics, Sedatives into Peripheral Vein, Percutaneous Approach (ICD-10-PCS; 2021-03-06)
PROC: 3E0337Z Introduction of Electrolytic and Water Balance Substance into Peripheral Vein, Percutaneous Approach (ICD-10-PCS; 2021-03-06)
PROC: 3E033GC Introduction of Other Therapeutic Substance into Peripheral Vein, Percutaneous Approach (ICD-10-PCS; 2021-03-06)
PROC: 3E033GC Introduction of Other Therapeutic Substance into Peripheral Vein, Percutaneous Approach (ICD-10-PCS; 2021-03-06)
DX: E11.65 Type 2 diabetes mellitus with hyperglycemia (principal)
CPT/HCPCS: 36415; 71045-TC-FY; 80048; 80053; 82010; 82550; 82803; 82962; 83735; 84100; 84443; 84484; 84703; 85025; 85610; 85730; 93005; 93010; 99284-25; C9803; J0131; U0003; U0005

== ENCOUNTER 2021-06-23 19:44 | Emergency (ER) | payer BC, OTHER | END 2021-06-23 22:00 | disposition home or self-care (01) | LOC: JVIRT 19:44 | DX: U07.1 COVID-19 (principal) | CPT/HCPCS: 99283-25; C9803; U0003; U0005 ==

== ENCOUNTER 2021-06-27 13:58 | Inpatient (IN) | payer BC, OTHER ==
[2021-06-27] MEDS ORDERED: LACTATED RINGERS SOLUTION 1000 ML INFUS.BAG IV ONE (14:57)
[2021-06-27] MEDS ORDERED: ONDANSETRON 4 MG/2 ML VIAL IVPUSH ONE (14:57)
[2021-06-27] MEDS ORDERED: ACETAMINOPHEN 1000 MG/100 ML VIAL IVPB ONE (14:58)
[2021-06-27] MEDS ORDERED: BAMLANIVIMAB 700 MG, ETESEVIMAB 1,400 MG in SODIUM CHLORIDE 100 ML IVPB ONE (14:59)
[2021-06-27] MEDS ORDERED: ACETAMINOPHEN INJECTION 100 ML IVPB ONE (15:05)
[2021-06-27] MEDS ORDERED: ONDANSETRON 4 MG/2 ML VIAL ONE (15:06)
[2021-06-27 15:47] LABS: BASO % 0.6 % (0-2.0); HEMATOCRIT 46.2 % (32.4-45.2); HEMOGLOBIN 15.2 GM/dL (10.7-15.3); LYMPH % 3.7 % (8-40); MCH 29.9 pg (25.7-33.7); MCHC 32.9 g/dl (32.0-36.0); MEAN CELL VOLUME 90.8 fl (80-96); MEAN PLT VOLUME 10.7 fl (7.5-11.1); MONO % 4.9 % (3.8-10.2); NEUT % 90.8 % (42.8-82.8); PLATELET COUNT 254 10^3/uL (134-434); RBC 5.08 M/mm3 (3.60-5.2); WHITE BLOOD COUNT 13.9 K/mm3 (4.0-10.0)
[2021-06-27] MEDS ORDERED: morphine CARPU-JECT 4 MG/1 ML DISP.SYRIN IVPUSH ONE (15:51)
[2021-06-27] MEDS ORDERED: morphine SULFATE 4 MG/ML VIAL ONE (16:05)
[2021-06-27 16:12] LABS: CHLORIDE 97 mmol/L (98-107); SODIUM 127 mmol/L (136-145)
[2021-06-27 16:14] LABS: ALBUMIN 4.4 g/dl (3.4-5.0); BLOOD UREA NITROGEN 21.8 mg/dL (7-18); CALCIUM 9.4 mg/dL (8.5-10.1); CO2 11 mmol/L (21-32)
[2021-06-27 16:15] LABS: MAGNESIUM 2.8 mg/dL (1.8-2.4)
[2021-06-27 16:17] LABS: CREATININE 1.4 mg/dL (0.55-1.3)
[2021-06-27 16:19] LABS: BILIRUBIN,TOTAL 2.2 mg/dL (0.2-1)
[2021-06-27 16:20] LABS: ALK PHOS 109 U/L (45-117)
[2021-06-27 16:33] LABS: ANION GAP 18 MMOL/L (8-16); GLUCOSE,RANDOM 589 mg/dL (74-106); SGOT/AST 102 U/L (15-37); SGPT/ALT 24 U/L (13-61)
[2021-06-27] MEDS ORDERED: INSULIN REGULAR HUMAN 100 UNITS/ML *VIAL* (FOR IVP) IVPUSH ONE (16:37)
[2021-06-27] MEDS ORDERED: INSULIN REGULAR 100 UNITS in SODIUM CHLORIDE 99 ML IVPB SCH (16:45)
[2021-06-27 17:04] LABS: VENOUS BASE EXCESS -18.7 mmol/L (-2-2); VENOUS O2 SATURATION 75.7 % (70-80); VENOUS PCO2 36.1 mmHg (38-52)
[2021-06-27 17:06] LABS: VENOUS PH 7.079 (7.310-7.410)
[2021-06-27 17:25] LABS: CHLORIDE 104 mmol/L (98-107); SODIUM 133 mmol/L (136-145)
[2021-06-27 17:27] LABS: CALCIUM 8.3 mg/dL (8.5-10.1)
[2021-06-27 17:28] LABS: CO2 10 mmol/L (21-32)
[2021-06-27 17:31] LABS: SGOT/AST 26 U/L (15-37); SGPT/ALT 20 U/L (13-61)
[2021-06-27 17:33] LABS: BILIRUBIN,TOTAL 1.5 mg/dL (0.2-1)
[2021-06-27 17:34] LABS: ALK PHOS 86 U/L (45-117)
[2021-06-27 17:35] LABS: ALBUMIN 3.5 g/dl (3.4-5.0); ANION GAP 18 MMOL/L (8-16); GLUCOSE,RANDOM 489 mg/dL (74-106)
[2021-06-27 17:41] LABS: EPI CELLS 4 /uL (0-25.1); HYALINE CASTS 0 /uL (0-3.1); URINE APPEARANCE CLEAR; URINE BACTERIA 562 /uL (0-1359); URINE BILIRUBIN NEGATIVE (NEGATIVE); URINE COLOR YELLOW; URINE GLUCOSE (UA) 3+ (NEGATIVE); URINE KETONE 4+ (NEGATIVE); URINE LEUK ESTERASE NEGATIVE (NEGATIVE); URINE NITRITE NEGATIVE (NEGATIVE); URINE PROTEIN NEGATIVE (NEGATIVE); URINE RBC 14 /uL (0-23.9); URINE UROBILINOGEN 0.2 mg/dL (0.2-1.0); URINE WBC 0 /uL (0-25.8)
[2021-06-27] MEDS ORDERED: LACTATED RINGERS SOLUTION 1,000 ML/1,000 ML INFUS.BAG IV SCH (17:45)
[2021-06-27 19:57] LABS: ARTERIAL BLD GAS O2 SATURATION 96.2 % (95-98); ARTERIAL BLOOD GAS BASE EXCESS -18.1 mmol/L (-2-2); ARTERIAL BLOOD GAS PO2 102.9 mmHg (80-100)
[2021-06-27 20:00] LABS: ALLENS TEST POSITIVE
[2021-06-27 20:01] LABS: ARTERIAL BLOOD GAS pH 7.158 (7.350-7.450)
[2021-06-27] MEDS ORDERED: ONDANSETRON 4 MG/2 ML VIAL IVPUSH PRN (20:01)
[2021-06-27 21:53] LABS: BLOOD UREA NITROGEN 18.9 mg/dL (7-18); CALCIUM 8.9 mg/dL (8.5-10.1)
[2021-06-27] MEDS ORDERED: MUPIROCIN 2% TOPICAL OINTMENT FOR DECOLONIZATION NS SCH (22:00)
[2021-06-27] MEDS ORDERED: CHLORHEXIDINE GLUCONATE 4% CLEANSER FOR DECOLONIZATION TP SCH (22:00)
[2021-06-27] MEDS ORDERED: POTASSIUM CHLORIDE ORAL LIQUID 20 MEQ/15 ML PO ONE (22:00)
[2021-06-27] MEDS ORDERED: DEXTROSE 5%-LACTATED RINGERS 1,000 ML IV SCH (22:15)
[2021-06-27] MEDS: CHLORHEXIDINE GLUCONATE 4% CLEANSER FOR DECOLONIZATION TP SCH (23:12)
[2021-06-27] MEDS: HEPARIN NA (PORCINE) 5,000 UNITS/ML 1ML VIAL SQ SCH (23:12)
[2021-06-27] MEDS: MUPIROCIN 2% TOPICAL OINTMENT FOR DECOLONIZATION NS SCH (23:12)
[2021-06-28 00:11] LABS: CALCIUM 8.1 mg/dL (8.5-10.1)
[2021-06-28 00:12] LABS: BLOOD UREA NITROGEN 16.2 mg/dL (7-18)
[2021-06-28 00:15] LABS: CREATININE 0.9 mg/dL (0.55-1.3)
[2021-06-28] MEDS ORDERED: POTASSIUM CHLORIDE ORAL LIQUID 20 MEQ/15 ML PO ONE (00:35)
[2021-06-28] MEDS: INSULIN (LEVEMIR) 100 UNITS/ML UNITS SQ SCH ×3 (00:54→22:01)
[2021-06-28] MEDS ORDERED: DEXTROSE 50%-WATER - 25 GM/50 ML VIAL IVPUSH ONE (02:02)
[2021-06-28] MEDS ORDERED: DEXTROSE 5%-LACTATED RINGERS 1,000 ML IV SCH (02:03)
[2021-06-28] MEDS ORDERED: DEXTROSE 50%-WATER 25 GM/50 ML DISP.SYRIN ONE (02:13)
[2021-06-28 04:14] LABS: CALCIUM 7.8 mg/dL (8.5-10.1)
[2021-06-28 04:15] LABS: BLOOD UREA NITROGEN 12.8 mg/dL (7-18)
[2021-06-28 04:18] LABS: CREATININE 0.8 mg/dL (0.55-1.3)
[2021-06-28 07:27] LABS: CALCIUM 7.8 mg/dL (8.5-10.1)
[2021-06-28 07:28] LABS: BLOOD UREA NITROGEN 11.3 mg/dL (7-18); MAGNESIUM 2.1 mg/dL (1.8-2.4)
[2021-06-28 07:30] LABS: CREATININE 0.8 mg/dL (0.55-1.3); PHOSPHOROUS 2.5 mg/dL (2.5-4.9)
[2021-06-28 07:31] LABS: BILIRUBIN,TOTAL 1.4 mg/dL (0.2-1)
[2021-06-28 07:32] LABS: TOT PROT 5.9 g/dl (6.4-8.2)
[2021-06-28] MEDS: INSULIN SLIDING SCALE (NOVOLOG) 1 VIAL SQ SCH ×4 (07:42→22:01)
[2021-06-28] MEDS: HEPARIN NA (PORCINE) 5,000 UNITS/ML 1ML VIAL SQ SCH ×3 (07:42→22:01)
[2021-06-28 07:46] LABS: BASO % 0.6 % (0-2.0); EOS % 0.5 % (0-4.5); HEMATOCRIT 35.2 % (32.4-45.2); HEMOGLOBIN 12.2 GM/dL (10.7-15.3); MCH 30.6 pg (25.7-33.7); MCHC 34.6 g/dl (32.0-36.0); MEAN CELL VOLUME 88.5 fl (80-96); MEAN PLT VOLUME 9.7 fl (7.5-11.1); MONO % 8.3 % (3.8-10.2); NEUT % 71.6 % (42.8-82.8); PLATELET COUNT 213 10^3/uL (134-434); RBC 3.97 M/mm3 (3.60-5.2); RDW 12.7 % (11.6-15.6); WHITE BLOOD COUNT 8.1 K/mm3 (4.0-10.0)
[2021-06-28] MEDS ORDERED: ACETAMINOPHEN 325 MG TABLET (FP) PO PRN (08:21)
[2021-06-28] MEDS ORDERED: SODIUM CHLORIDE 1,000 ML IV SCH ×3 (09:30→22:36)
[2021-06-28] MEDS: MUPIROCIN 2% TOPICAL OINTMENT FOR DECOLONIZATION NS SCH ×2 (11:31→22:01)
[2021-06-28 15:11] VITALS: TEMP 98
[2021-06-28] MEDS: CHLORHEXIDINE GLUCONATE 4% CLEANSER FOR DECOLONIZATION TP SCH (22:01)
[2021-06-29 01:47] VITALS: BP 112/78
[2021-06-29 02:09] VITALS: PULSE 74
[2021-06-29] MEDS: INSULIN SLIDING SCALE (NOVOLOG) 1 VIAL SQ SCH ×2 (07:10→11:42)
[2021-06-29] MEDS: HEPARIN NA (PORCINE) 5,000 UNITS/ML 1ML VIAL SQ SCH (07:29)
[2021-06-29] MEDS: INSULIN (LEVEMIR) 100 UNITS/ML UNITS SQ SCH (10:22)
[2021-06-29] MEDS: MUPIROCIN 2% TOPICAL OINTMENT FOR DECOLONIZATION NS SCH (11:41)
[2021-06-29 11:56] LABS: BLOOD UREA NITROGEN 4.5 mg/dL (7-18)
[2021-06-29 11:59] LABS: CREATININE 0.6 mg/dL (0.55-1.3)
[2021-06-29 15:17] VITALS: BMI 26.8
== END 2021-06-29 14:55 | disposition home or self-care (01) | DRG 637 ==
LOC: JER 13:58 → JERBED 16:48 → JICU 19:46
PROVIDERS: ADMIT Internal Medicine Pulmonary Disease; ATTEND Internal Medicine Pulmonary Disease
DX: E11.10 Type 2 diabetes mellitus with ketoacidosis without coma (principal); U07.1 COVID-19; N17.9 Acute kidney failure, unspecified; E87.5 Hyperkalemia; Z79.4 Long term (current) use of insulin
CPT/HCPCS: 36415; 36600; 71045-TC-FY; 80048; 80053; 81003; 82010; 82803; 82962; 83735; 84100; 84484; 84703; 85025; 87086; 93005; 93010; 99285-25; J0131; J1644; M0245; Q0239; Q0245

== ENCOUNTER 2021-06-30 21:04 | Inpatient (IN) | payer BC, OTHER ==
[2021-06-30 21:10] VITALS: BMI 26.2
[2021-06-30] MEDS ORDERED: ONDANSETRON 4 MG/2 ML VIAL ONE (21:21)
[2021-06-30] MEDS ORDERED: FAMOTIDINE/PF 20 MG/2 ML VIAL ONE (21:22)
[2021-06-30] MEDS ORDERED: ONDANSETRON 4 MG/2 ML VIAL IVPUSH ONE (21:27)
[2021-06-30] MEDS ORDERED: FAMOTIDINE 20 MG/50 ML IVPB 50 ML IVPB ONE (21:27)
[2021-06-30] MEDS ORDERED: LACTATED RINGERS SOLUTION 1000 ML INFUS.BAG IV ONE ×2 (21:27)
[2021-06-30] MEDS ORDERED: FAMOTIDINE/PF 20 MG/2 ML VIAL IVPB ONE (21:30)
[2021-06-30 22:14] LABS: VENOUS BASE EXCESS -14.9 mmol/L (-2-2); VENOUS O2 SATURATION 80.5 % (70-80); VENOUS PCO2 28.5 mmHg (38-52); VENOUS PH 7.214 (7.310-7.410)
[2021-06-30 22:24] LABS: BASO % 0.4 % (0-2.0); EOS % 0.1 % (0-4.5); HEMATOCRIT 43.6 % (32.4-45.2); HEMOGLOBIN 14.8 GM/dL (10.7-15.3); LYMPH % 10.1 % (8-40); MCH 29.6 pg (25.7-33.7); MCHC 33.8 g/dl (32.0-36.0); MEAN CELL VOLUME 87.4 fl (80-96); MONO % 4.3 % (3.8-10.2); NEUT % 85.1 % (42.8-82.8); PLATELET COUNT 238 10^3/uL (134-434); RBC 4.99 M/mm3 (3.60-5.2); RDW 12.5 % (11.6-15.6); WHITE BLOOD COUNT 6.4 K/mm3 (4.0-10.0)
[2021-06-30] MEDS ORDERED: METOCLOPRAMIDE HCL INJECTION 10 MG/2 ML VIAL IVPUSH ONE (22:26)
[2021-06-30] MEDS ORDERED: METOCLOPRAMIDE HCL INJECTION 10 MG/2 ML VIAL ONE (22:27)
[2021-06-30 22:31] LABS: INR 1.08 (0.83-1.09); PROTHROMBIN TIME (PATIENT) 12.1 SEC (9.7-13.0)
[2021-06-30 22:34] LABS: ACTIVATED PTT 30.2 SECONDS (25.2-36.5)
[2021-06-30 22:35] LABS: URINE APPEARANCE CLEAR; URINE BILIRUBIN NEGATIVE (NEGATIVE); URINE COLOR YELLOW; URINE GLUCOSE (UA) 3+ (NEGATIVE); URINE KETONE 4+ (NEGATIVE); URINE LEUK ESTERASE NEGATIVE (NEGATIVE); URINE NITRITE NEGATIVE (NEGATIVE); URINE PROTEIN NEGATIVE (NEGATIVE); URINE UROBILINOGEN 0.2 mg/dL (0.2-1.0)
[2021-06-30 22:52] LABS: CHLORIDE 97 mmol/L (98-107); SODIUM 130 mmol/L (136-145)
[2021-06-30 22:55] LABS: ANION GAP 22 MMOL/L (8-16); CO2 11 mmol/L (21-32); LIPASE 109 U/L (73-393); MAGNESIUM 2.5 mg/dL (1.8-2.4)
[2021-06-30 22:58] LABS: SGOT/AST 19 U/L (15-37); SGPT/ALT 27 U/L (13-61)
[2021-06-30 22:59] LABS: BILIRUBIN,TOTAL 1.8 mg/dL (0.2-1)
[2021-06-30] MEDS ORDERED: INSULIN REGULAR HUMAN 100 UNITS/ML *VIAL* (FOR IVP) IVPUSH ONE (23:01)
[2021-06-30] MEDS ORDERED: INSULIN REGULAR 100 UNITS in SODIUM CHLORIDE 99 ML IVPB SCH (23:15)
[2021-06-30 23:16] LABS: ALBUMIN 4.8 g/dl (3.4-5.0); ALK PHOS 106 U/L (45-117); CALCIUM 9.4 mg/dL (8.5-10.1); GLUCOSE,RANDOM 480 mg/dL (74-106); TOT PROT 8.7 g/dl (6.4-8.2)
[2021-06-30] MEDS ORDERED: PROMETHAZINE HCL 25 MG/1 ML VIAL IVPUSH ONE (23:22)
[2021-06-30] MEDS ORDERED: SODIUM CHLORIDE 1,000 ML IV SCH (23:45)
[2021-06-30] MEDS ORDERED: LACTATED RINGERS SOLUTION 1,000 ML with POTASSIUM CHLORIDE 20 MEQ IV ONE (23:58)
[2021-06-30] MEDS ORDERED: POTASSIUM CHLORIDE ORAL LIQUID 20 MEQ/15 ML PO ONE (23:59)
[2021-07-01] MEDS ORDERED: ACETAMINOPHEN 1000 MG/100 ML VIAL IVPB ONE (00:04)
[2021-07-01] MEDS ORDERED: morphine SULFATE 4 MG/ML VIAL IVPUSH ONE (00:08)
[2021-07-01] MEDS ORDERED: PT OWN MED DRAWER 7, Y5N ONE (00:50)
[2021-07-01 01:46] LABS: CHLORIDE 102 mmol/L (98-107); SODIUM 134 mmol/L (136-145)
[2021-07-01 01:47] LABS: ANION GAP 25 MMOL/L (8-16); BLOOD UREA NITROGEN 16.4 mg/dL (7-18); CALCIUM 8.2 mg/dL (8.5-10.1); CO2 7 mmol/L (21-32)
[2021-07-01 01:51] LABS: CREATININE 0.9 mg/dL (0.55-1.3)
[2021-07-01] MEDS ORDERED: SODIUM BICARBONATE 8.4% 50 MEQ/50 ML DISP.SYRIN IVPUSH ONE (02:06)
[2021-07-01] MEDS ORDERED: INSULIN REGULAR HUMAN 100 UNITS/ML *VIAL IVPUSH ONE (02:16)
[2021-07-01 02:23] LABS: GLUCOSE,RANDOM 461 mg/dL (74-106)
[2021-07-01 03:22] LABS: VENOUS BASE EXCESS -13.9 mmol/L (-2-2); VENOUS O2 SATURATION 93.4 % (70-80); VENOUS PH 7.261 (7.310-7.410)
[2021-07-01 03:44] LABS: CALCIUM 8.4 mg/dL (8.5-10.1)
[2021-07-01 03:45] LABS: BLOOD UREA NITROGEN 13.8 mg/dL (7-18)
[2021-07-01 03:49] LABS: CREATININE 0.9 mg/dL (0.55-1.3)
[2021-07-01] MEDS ORDERED: DEXTROSE 5%-LACTATED RINGERS 1,000 ML IV SCH ×3 (04:15)
[2021-07-01] MEDS: HEPARIN NA (PORCINE) 5,000 UNITS/ML 1ML VIAL SQ SCH ×2 (06:16→14:45)
[2021-07-01 07:28] LABS: BASO % 0.7 % (0-2.0); EOS % 0.1 % (0-4.5); HEMOGLOBIN 12.5 GM/dL (10.7-15.3); LYMPH % 24.6 % (8-40); MCH 30.3 pg (25.7-33.7); MCHC 34.8 g/dl (32.0-36.0); MEAN CELL VOLUME 87.2 fl (80-96); MEAN PLT VOLUME 9.3 fl (7.5-11.1); MONO % 13.3 % (3.8-10.2); NEUT % 61.3 % (42.8-82.8); PLATELET COUNT 246 10^3/uL (134-434); RBC 4.13 M/mm3 (3.60-5.2); RDW 12.4 % (11.6-15.6); WHITE BLOOD COUNT 7.5 K/mm3 (4.0-10.0)
[2021-07-01 07:42] LABS: CALCIUM 8.4 mg/dL (8.5-10.1)
[2021-07-01 07:43] LABS: BLOOD UREA NITROGEN 11.2 mg/dL (7-18); MAGNESIUM 2.2 mg/dL (1.8-2.4)
[2021-07-01 07:46] LABS: CREATININE 0.8 mg/dL (0.55-1.3); PHOSPHOROUS 2.3 mg/dL (2.5-4.9)
[2021-07-01 08:37] VITALS: BP 102/68
[2021-07-01] MEDS ORDERED: MUPIROCIN 2% TOPICAL OINTMENT FOR DECOLONIZATION NS SCH ×2 (10:00)
[2021-07-01 10:22] LABS: CALCIUM 8.1 mg/dL (8.5-10.1)
[2021-07-01 10:24] LABS: BLOOD UREA NITROGEN 10.2 mg/dL (7-18)
[2021-07-01 10:27] LABS: CREATININE 0.9 mg/dL (0.55-1.3)
[2021-07-01] MEDS ORDERED: INSULIN PUMP - PATIENTS OWN MED NR SCH (10:30)
[2021-07-01 10:59] VITALS: PULSE 85; TEMP 98.7
[2021-07-01] MEDS ORDERED: CHLORHEXIDINE GLUCONATE 4% CLEANSER FOR DECOLONIZATION TP SCH ×2 (22:00)
== END 2021-07-01 15:08 | disposition home or self-care (01) | DRG 639 ==
LOC: JER 21:04 → JERBED 23:01 → JICU 23:56
PROVIDERS: ATTEND Family Medicine
DX: E11.10 Type 2 diabetes mellitus with ketoacidosis without coma (principal); R00.0 Tachycardia, unspecified; Z86.16 Personal history of COVID-19
CPT/HCPCS: 36415; 71045-TC-FY; 80048; 80053; 81003; 82010; 82550; 82803; 82962; 83690; 83735; 83930; 84100; 84484; 85025; 85610; 85730; 87040; 87077; 87086; 87804; 87807; 93005; 93010; 99291; C9803; U0003; U0005

== ENCOUNTER 2021-07-01 23:59 | Inpatient (IN) | payer BC, OTHER ==
[2021-07-02] MEDS ORDERED: ONDANSETRON 4 MG/2 ML VIAL IVPUSH ONE ×2 (00:04→01:55)
[2021-07-02] MEDS ORDERED: SODIUM CHLORIDE 0.9% 1000 ML INFUS.BAG IV ONE (00:04)
[2021-07-02] MEDS ORDERED: ONDANSETRON 4 MG/2 ML VIAL ONE ×2 (00:07→00:36)
[2021-07-02] MEDS ORDERED: METOCLOPRAMIDE HCL INJECTION 10 MG/2 ML VIAL ONE (00:16)
[2021-07-02 00:42] LABS: BASO % 0.8 % (0-2.0); EOS % 0.1 % (0-4.5); HEMATOCRIT 41.9 % (32.4-45.2); HEMOGLOBIN 13.8 GM/dL (10.7-15.3); LYMPH % 7.2 % (8-40); MCH 29.5 pg (25.7-33.7); MCHC 32.9 g/dl (32.0-36.0); MEAN CELL VOLUME 89.7 fl (80-96); MEAN PLT VOLUME 9.6 fl (7.5-11.1); MONO % 4.2 % (3.8-10.2); NEUT % 87.7 % (42.8-82.8); PLATELET COUNT 299 10^3/uL (134-434); RBC 4.67 M/mm3 (3.60-5.2); RDW 12.8 % (11.6-15.6); VENOUS BASE EXCESS -20.4 mmol/L (-2-2); VENOUS O2 SATURATION 61.5 % (70-80); VENOUS PCO2 27.6 mmHg (38-52); WHITE BLOOD COUNT 12.6 K/mm3 (4.0-10.0)
[2021-07-02] MEDS ORDERED: morphine CARPU-JECT 4 MG/1 ML DISP.SYRIN IVPUSH ONE (00:44)
[2021-07-02] MEDS ORDERED: METOCLOPRAMIDE HCL INJECTION 10 MG/2 ML VIAL IVPUSH ONE (00:44)
[2021-07-02] MEDS ORDERED: morphine SULFATE 4 MG/ML VIAL ONE (00:49)
[2021-07-02 00:52] LABS: VENOUS PH 7.087 (7.310-7.410)
[2021-07-02] MEDS ORDERED: INSULIN REGULAR HUMAN 100 UNITS/ML *VIAL* (FOR IVP) IVPUSH ONE (00:58)
[2021-07-02 01:04] LABS: CHLORIDE 98 mmol/L (98-107); SODIUM 131 mmol/L (136-145)
[2021-07-02 01:07] LABS: ALBUMIN 4.4 g/dl (3.4-5.0); ANION GAP 24 MMOL/L (8-16); BLOOD UREA NITROGEN 14.5 mg/dL (7-18); CALCIUM 9.3 mg/dL (8.5-10.1); CO2 9 mmol/L (21-32)
[2021-07-02 01:10] LABS: CREATININE 1.4 mg/dL (0.55-1.3); SGOT/AST 29 U/L (15-37); SGPT/ALT 36 U/L (13-61)
[2021-07-02 01:12] LABS: BILIRUBIN,TOTAL 1.2 mg/dL (0.2-1); TOT PROT 8.1 g/dl (6.4-8.2)
[2021-07-02 01:13] LABS: ALK PHOS 101 U/L (45-117)
[2021-07-02 01:19] LABS: LIPASE 98 U/L (73-393)
[2021-07-02 01:29] LABS: GLUCOSE,RANDOM > 500 mg/dL (74-106)
[2021-07-02] MEDS ORDERED: INSULIN REGULAR HUMAN 100 UNITS/ML *VIAL ONE ×2 (01:52→02:10)
[2021-07-02] MEDS ORDERED: FAMOTIDINE 20 MG/50 ML IVPB 20 MG/50 ML MG IVPB ONE (01:55)
[2021-07-02 01:58] LABS: MAGNESIUM 2.2 mg/dL (1.8-2.4)
[2021-07-02 02:02] LABS: PHOSPHOROUS 3.8 mg/dL (2.5-4.9)
[2021-07-02] MEDS ORDERED: LACTATED RINGERS SOLUTION 1,000 ML/1,000 ML INFUS.BAG IV STA ×2 (02:08→02:10)
[2021-07-02] MEDS ORDERED: LACTATED RINGERS SOLUTION 1,000 ML with POTASSIUM CHLORIDE 20 MEQ IV ONE ×2 (02:09→06:27)
[2021-07-02] MEDS ORDERED: SODIUM BICARBONATE 8.4% 50 MEQ/50 ML DISP.SYRIN IVPUSH ONE (02:11)
[2021-07-02] MEDS: INSULIN REGULAR 100 UNITS in SODIUM CHLORIDE 99 ML IVPB SCH (02:26)
[2021-07-02 03:05] LABS: EPI CELLS 10 /uL (0-25.1); HYALINE CASTS 1 /uL (0-3.1); URINE APPEARANCE CLEAR; URINE BACTERIA 860 /uL (0-1359); URINE BILIRUBIN NEGATIVE (NEGATIVE); URINE COLOR YELLOW; URINE GLUCOSE (UA) 3+ (NEGATIVE); URINE KETONE 4+ (NEGATIVE); URINE LEUK ESTERASE NEGATIVE (NEGATIVE); URINE NITRITE NEGATIVE (NEGATIVE); URINE PROTEIN TRACE (NEGATIVE); URINE RBC 3 /uL (0-23.9); URINE UROBILINOGEN 0.2 mg/dL (0.2-1.0); URINE WBC 10 /uL (0-25.8)
[2021-07-02] MEDS ORDERED: MAG HYDROX/AL HYDROX/SIMETH 30 ML UNIT-DOSE CUP PO ONE (04:10)
[2021-07-02] MEDS ORDERED: POTASSIUM CHLORIDE ORAL LIQUID 20 MEQ/15 ML PO ONE (04:41)
[2021-07-02] MEDS ORDERED: DEXTROSE 5%-LACTATED RINGERS 1,000 ML IV SCH ×3 (04:45→16:15)
[2021-07-02] MEDS ORDERED: MAG HYDROX/AL HYDROX/SIMETH 30 ML UNIT-DOSE CUP ONE ×2 (04:48→05:04)
[2021-07-02] MEDS ORDERED: ACETAMINOPHEN 325 MG TABLET (FP) PO PRN (05:34)
[2021-07-02] MEDS: HEPARIN NA (PORCINE) 5,000 UNITS/ML 1ML VIAL SQ SCH ×3 (06:00→22:21)
[2021-07-02 06:05] LABS: BASO % 0.3 % (0-2.0); HEMATOCRIT 39.2 % (32.4-45.2); HEMOGLOBIN 12.9 GM/dL (10.7-15.3); LYMPH % 3.9 % (8-40); MCH 29.9 pg (25.7-33.7); MEAN CELL VOLUME 90.7 fl (80-96); MEAN PLT VOLUME 9.6 fl (7.5-11.1); MONO % 8.1 % (3.8-10.2); NEUT % 87.7 % (42.8-82.8); PLATELET COUNT 262 10^3/uL (134-434); RBC 4.32 M/mm3 (3.60-5.2); RDW 12.9 % (11.6-15.6); WHITE BLOOD COUNT 15.8 K/mm3 (4.0-10.0)
[2021-07-02 06:19] LABS: INR 1.02 (0.83-1.09); PROTHROMBIN TIME (PATIENT) 11.9 SEC (9.7-13.0)
[2021-07-02 06:22] LABS: ACTIVATED PTT 25.7 SECONDS (25.2-36.5)
[2021-07-02 06:29] LABS: MAGNESIUM 2.2 mg/dL (1.8-2.4)
[2021-07-02 06:31] LABS: PHOSPHOROUS 3.8 mg/dL (2.5-4.9)
[2021-07-02 06:33] LABS: CREATININE 1.1 mg/dL (0.55-1.3)
[2021-07-02 06:35] LABS: CALCIUM 7.8 mg/dL (8.5-10.1)
[2021-07-02 06:52] LABS: VENOUS BASE EXCESS -22.1 mmol/L (-2-2); VENOUS O2 SATURATION 48.8 % (70-80)
[2021-07-02 07:22] LABS: VENOUS PH 7.021 (7.310-7.410)
[2021-07-02 09:23] LABS: CALCIUM 7.7 mg/dL (8.5-10.1)
[2021-07-02 09:24] LABS: BLOOD UREA NITROGEN 8.7 mg/dL (7-18); MAGNESIUM 1.9 mg/dL (1.8-2.4)
[2021-07-02] MEDS ORDERED: DEXTROSE 10%-WATER - 1,000 ML IV SCH (10:30)
[2021-07-02] MEDS: MUPIROCIN 2% TOPICAL OINTMENT FOR DECOLONIZATION NS SCH ×2 (12:22→22:21)
[2021-07-02 14:00] LABS: BLOOD UREA NITROGEN 6.8 mg/dL (7-18); CALCIUM 7.8 mg/dL (8.5-10.1)
[2021-07-02 14:04] LABS: CREATININE 0.9 mg/dL (0.55-1.3)
[2021-07-02] MEDS ORDERED: ACETAMINOPHEN 1000 MG/100 ML VIAL IVPB ONE (15:12)
[2021-07-02] MEDS ORDERED: ONDANSETRON 4 MG/2 ML VIAL IVPUSH PRN ×2 (15:13→18:24)
[2021-07-02] MEDS ORDERED: DEXTROSE 50%-WATER - 25 GM/50 ML VIAL IVPUSH ONE (16:48)
[2021-07-02] MEDS ORDERED: DEXTROSE 50%-WATER 25 GM/50 ML DISP.SYRIN ONE ×2 (16:49→22:40)
[2021-07-02] MEDS ORDERED: ONDANSETRON 4 MG/2 ML VIAL IVPUSH SCH (18:15)
[2021-07-02 18:22] LABS: BLOOD UREA NITROGEN 6.1 mg/dL (7-18); CALCIUM 7.8 mg/dL (8.5-10.1)
[2021-07-02 18:26] LABS: CREATININE 0.9 mg/dL (0.55-1.3)
[2021-07-02] MEDS: ACETAMINOPHEN 1000 MG/100 ML VIAL IVPB PRN ×2 (18:35→22:42)
[2021-07-02] MEDS ORDERED: POTASSIUM CHLORIDE IV SCH ×2 (18:52→22:39)
[2021-07-02] MEDS ORDERED: DEXTROSE 10% IV SCH ×2 (18:52→22:39)
[2021-07-02] MEDS ORDERED: WATER IV SCH ×2 (18:52→22:39)
[2021-07-02 21:18] LABS: ARTERIAL BLOOD GAS pH 7.468 (7.350-7.450)
[2021-07-02 21:19] LABS: ALLENS TEST POSITIVE
[2021-07-02] MEDS ORDERED: DEXTROSE 50%-WATER - 25 GM/50 ML VIAL IVPUSH PRN (21:29)
[2021-07-02 21:48] LABS: BLOOD UREA NITROGEN 5.9 mg/dL (7-18); CALCIUM 7.9 mg/dL (8.5-10.1)
[2021-07-02 21:51] LABS: CREATININE 0.7 mg/dL (0.55-1.3)
[2021-07-02] MEDS: METOCLOPRAMIDE HCL INJECTION 10 MG/2 ML VIAL IVPUSH PRN (22:21)
[2021-07-02] MEDS: CHLORHEXIDINE GLUCONATE 4% CLEANSER FOR DECOLONIZATION TP SCH (22:23)
[2021-07-02] MEDS ORDERED: POTASSIUM CHLORIDE TABS 20 MEQ TABLET.ER (FP) PO ONE (23:00)
[2021-07-03] MEDS ORDERED: MELATONIN 5 MG TABLETS PO PRN (00:30)
[2021-07-03 02:00] LABS: CHLORIDE 110 mmol/L (98-107); SODIUM 140 mmol/L (136-145)
[2021-07-03 02:04] LABS: BLOOD UREA NITROGEN 3.4 mg/dL (7-18); CALCIUM 7.8 mg/dL (8.5-10.1); CO2 21 mmol/L (21-32); GLUCOSE,RANDOM 114 mg/dL (74-106)
[2021-07-03 02:08] LABS: CREATININE 0.8 mg/dL (0.55-1.3)
[2021-07-03 02:13] LABS: ANION GAP 9 MMOL/L (8-16)
[2021-07-03] MEDS ORDERED: POTASSIUM CHLORIDE TABS 20 MEQ TABLET.ER (FP) PO ONE (02:19)
[2021-07-03] MEDS ORDERED: diphenhydrAMINE HCL 25 MG CAPSULE (FP) PO ONE (03:12)
[2021-07-03 04:45] LABS: MAGNESIUM 2.1 mg/dL (1.8-2.4)
[2021-07-03 04:47] LABS: PHOSPHOROUS 1.5 mg/dL (2.5-4.9)
[2021-07-03] MEDS ORDERED: CALCIUM CARBONATE 650 MG TABLET PO SCH ×2 (06:00→10:00)
[2021-07-03] MEDS ORDERED: WATER IVPB SCH (06:15)
[2021-07-03] MEDS ORDERED: DEXTROSE 10% IVPB SCH (06:15)
[2021-07-03] MEDS ORDERED: POTASSIUM PHOSPHATE IVPB SCH (06:15)
[2021-07-03] MEDS ORDERED: DEXTROSE 5%-LACTATED RINGERS 980 ML with POTASSIUM CHLORIDE 40 MEQ IV SCH (06:21)
[2021-07-03] MEDS ORDERED: DEXTROSE 10%-WATER - 1,000 ML IV SCH (06:25)
[2021-07-03] MEDS: HEPARIN NA (PORCINE) 5,000 UNITS/ML 1ML VIAL SQ SCH ×3 (06:30→23:33)
[2021-07-03] MEDS ORDERED: KCL 10 MEQ IVPB 10 MEQ/100 ML INFUS.BAG IVPB SCH (06:30)
[2021-07-03] MEDS ORDERED: DEXTROSE 5%-LACTATED RINGERS 1,000 ML IV SCH (06:38)
[2021-07-03 06:39] LABS: HEMATOCRIT 31.1 % (32.4-45.2); HEMOGLOBIN 10.9 GM/dL (10.7-15.3); MCH 30.4 pg (25.7-33.7); MEAN CELL VOLUME 86.8 fl (80-96); MEAN PLT VOLUME 8.7 fl (7.5-11.1); PLATELET COUNT 188 10^3/uL (134-434); RBC 3.58 M/mm3 (3.60-5.2); RDW 12.5 % (11.6-15.6); WHITE BLOOD COUNT 3.6 K/mm3 (4.0-10.0)
[2021-07-03 06:54] LABS: CHLORIDE 112 mmol/L (98-107); SODIUM 141 mmol/L (136-145)
[2021-07-03 06:58] LABS: CALCIUM 7.7 mg/dL (8.5-10.1)
[2021-07-03 06:59] LABS: ANION GAP 5 MMOL/L (8-16); CO2 24 mmol/L (21-32); GLUCOSE,RANDOM 70 mg/dL (74-106)
[2021-07-03 07:00] LABS: MAGNESIUM 2.1 mg/dL (1.8-2.4)
[2021-07-03 07:02] LABS: CREATININE 0.7 mg/dL (0.55-1.3); PHOSPHOROUS 1.9 mg/dL (2.5-4.9)
[2021-07-03 07:14] LABS: BLOOD UREA NITROGEN 2.8 mg/dL (7-18)
[2021-07-03] MEDS: POTASSIUM PHOSPHATE 30 MM in SODIUM CHLORIDE 250 ML IVPB ONE ×2 (09:27→09:34)
[2021-07-03] MEDS: NAPH,MB-DB/K PH,MBDB POWDER PACKET PO SCH ×2 (09:34→23:34)
[2021-07-03] MEDS: MUPIROCIN 2% TOPICAL OINTMENT FOR DECOLONIZATION NS SCH ×2 (11:00→23:33)
[2021-07-03] MEDS ORDERED: SODIUM CHLORIDE 0.45%/POT 20 MEQ/1,000 ML INFUS.BAG IV SCH (14:00)
[2021-07-03] MEDS ORDERED: ERGOCALCIFEROL (VIT D2) 50,000 UNIT (1.25 MG) CAPSULE PO ONE (14:03)
[2021-07-03 15:44] VITALS: BMI 27.6
[2021-07-03] MEDS ORDERED: PT OWN MED DRAWER 7, Y5N ONE ×2 (15:53→18:31)
[2021-07-03 16:15] LABS: HEMATOCRIT 32.9 % (32.4-45.2); HEMOGLOBIN 11.3 GM/dL (10.7-15.3); MCH 29.7 pg (25.7-33.7); MCHC 34.3 g/dl (32.0-36.0); MEAN CELL VOLUME 86.5 fl (80-96); MEAN PLT VOLUME 8.8 fl (7.5-11.1); PLATELET COUNT 174 10^3/uL (134-434); RBC 3.81 M/mm3 (3.60-5.2); RDW 12.6 % (11.6-15.6); WHITE BLOOD COUNT 3.4 K/mm3 (4.0-10.0)
[2021-07-03 16:58] LABS: CHLORIDE 107 mmol/L (98-107)
[2021-07-03 17:00] LABS: CALCIUM 8.3 mg/dL (8.5-10.1); CO2 23 mmol/L (21-32); GLUCOSE,RANDOM 202 mg/dL (74-106)
[2021-07-03 17:03] LABS: CREATININE 0.7 mg/dL (0.55-1.3)
[2021-07-03 17:20] LABS: ANION GAP 10 MMOL/L (8-16); BLOOD UREA NITROGEN 2.9 mg/dL (7-18); SODIUM 139 mmol/L (136-145)
[2021-07-03] MEDS: CHLORHEXIDINE GLUCONATE 4% CLEANSER FOR DECOLONIZATION TP SCH (23:34)
[2021-07-03] MEDS ORDERED: LACTATED RINGERS SOLUTION 1,000 ML/1,000 ML INFUS.BAG IV STA (23:56)
[2021-07-04] MEDS: HEPARIN NA (PORCINE) 5,000 UNITS/ML 1ML VIAL SQ SCH ×3 (07:12→22:09)
[2021-07-04 07:28] LABS: HEMATOCRIT 37.8 % (32.4-45.2); HEMOGLOBIN 12.8 GM/dL (10.7-15.3); MCH 30.1 pg (25.7-33.7); MCHC 33.8 g/dl (32.0-36.0); MEAN PLT VOLUME 9.9 fl (7.5-11.1); PLATELET COUNT 155 10^3/uL (134-434); RBC 4.25 M/mm3 (3.60-5.2); RDW 12.6 % (11.6-15.6); WHITE BLOOD COUNT 3.9 K/mm3 (4.0-10.0)
[2021-07-04 07:53] LABS: CHLORIDE 98 mmol/L (98-107); SODIUM 131 mmol/L (136-145)
[2021-07-04 07:57] LABS: CALCIUM 8.2 mg/dL (8.5-10.1)
[2021-07-04 07:58] LABS: ANION GAP 18 MMOL/L (8-16); BLOOD UREA NITROGEN 8.9 mg/dL (7-18); CO2 15 mmol/L (21-32)
[2021-07-04 08:00] LABS: CREATININE 0.9 mg/dL (0.55-1.3); SGOT/AST 17 U/L (15-37); SGPT/ALT 34 U/L (13-61)
[2021-07-04 08:01] LABS: BILIRUBIN,TOTAL 1.5 mg/dL (0.2-1)
[2021-07-04 08:03] LABS: ALK PHOS 88 U/L (45-117); TOT PROT 6.9 g/dl (6.4-8.2)
[2021-07-04 08:09] LABS: ALBUMIN 3.5 g/dl (3.4-5.0); GLUCOSE,RANDOM 482 mg/dL (74-106)
[2021-07-04] MEDS ORDERED: LACTATED RINGERS SOLUTION 1,000 ML/1,000 ML INFUS.BAG IV SCH (10:15)
[2021-07-04] MEDS ORDERED: INSULIN SLIDING SCALE (NOVOLOG) 1 VIAL SQ SCH (11:00)
[2021-07-04] MEDS: MUPIROCIN 2% TOPICAL OINTMENT FOR DECOLONIZATION NS SCH ×2 (11:00→22:09)
[2021-07-04 14:15] LABS: CHLORIDE 101 mmol/L (98-107); SODIUM 131 mmol/L (136-145)
[2021-07-04 14:17] LABS: CALCIUM 8.8 mg/dL (8.5-10.1)
[2021-07-04 14:18] LABS: ANION GAP 21 MMOL/L (8-16); BLOOD UREA NITROGEN 8.6 mg/dL (7-18); CO2 9 mmol/L (21-32); GLUCOSE,RANDOM 456 mg/dL (74-106)
[2021-07-04] MEDS: METOCLOPRAMIDE HCL INJECTION 10 MG/2 ML VIAL IVPUSH PRN ×2 (14:20→22:10)
[2021-07-04 14:21] LABS: CREATININE 0.9 mg/dL (0.55-1.3)
[2021-07-04] MEDS ORDERED: Insulin (LOG) Aspart 100 UNITS/ML VIAL SQ ONE (15:26)
[2021-07-04] MEDS ORDERED: INSULIN REGULAR HUMAN 100 UNITS/ML *VIAL IVPUSH ONE (15:35)
[2021-07-04] MEDS ORDERED: DEXTROSE 5%-NORMAL SALINE 1,000 ML IV SCH (17:45)
[2021-07-04 18:27] LABS: BLOOD UREA NITROGEN 10.4 mg/dL (7-18); CALCIUM 8.9 mg/dL (8.5-10.1)
[2021-07-04 18:30] LABS: CREATININE 0.9 mg/dL (0.55-1.3)
[2021-07-04] MEDS ORDERED: WATER IV SCH (19:00)
[2021-07-04] MEDS ORDERED: POTASSIUM CHLORIDE IV SCH (19:00)
[2021-07-04] MEDS ORDERED: DEXTROSE 10% IV SCH (19:00)
[2021-07-04] MEDS: INSULIN REGULAR 100 UNITS in SODIUM CHLORIDE 99 ML IVPB SCH (21:58)
[2021-07-04] MEDS: CHLORHEXIDINE GLUCONATE 4% CLEANSER FOR DECOLONIZATION TP SCH (22:10)
[2021-07-04 23:23] LABS: BLOOD UREA NITROGEN 9.1 mg/dL (7-18); CALCIUM 8.7 mg/dL (8.5-10.1)
[2021-07-04 23:27] LABS: CREATININE 0.9 mg/dL (0.55-1.3)
[2021-07-05] MEDS ORDERED: SODIUM CHLORIDE 0.9% 500 ML INFUS.BAG IV ONE (03:51)
[2021-07-05 04:44] LABS: CALCIUM 8.2 mg/dL (8.5-10.1)
[2021-07-05 04:45] LABS: BLOOD UREA NITROGEN 7.9 mg/dL (7-18)
[2021-07-05 04:48] LABS: CREATININE 0.8 mg/dL (0.55-1.3)
[2021-07-05] MEDS ORDERED: D5-1/2NS+30 MEQ KCL - 30 MEQ/1,000 ML INFUS.BAG IV SCH (05:30)
[2021-07-05] MEDS: D5-1/2NS+20 MEQ KCL - 20 MEQ/1,000 ML INFUS.BAG IV SCH ×2 (07:26→18:10)
[2021-07-05] MEDS: HEPARIN NA (PORCINE) 5,000 UNITS/ML 1ML VIAL SQ SCH ×3 (07:26→22:37)
[2021-07-05 07:59] LABS: BASO % 0.9 % (0-2.0); EOS % 1.3 % (0-4.5); HEMATOCRIT 36.9 % (32.4-45.2); LYMPH % 39.6 % (8-40); MCH 30.4 pg (25.7-33.7); MCHC 35.1 g/dl (32.0-36.0); MEAN CELL VOLUME 86.6 fl (80-96); MEAN PLT VOLUME 9.2 fl (7.5-11.1); MONO % 8.6 % (3.8-10.2); NEUT % 49.6 % (42.8-82.8); PLATELET COUNT 208 10^3/uL (134-434); RBC 4.27 M/mm3 (3.60-5.2); RDW 12.2 % (11.6-15.6); WHITE BLOOD COUNT 4.5 K/mm3 (4.0-10.0)
[2021-07-05 08:09] LABS: CALCIUM 8.6 mg/dL (8.5-10.1)
[2021-07-05 08:10] LABS: ALBUMIN 3.6 g/dl (3.4-5.0); BLOOD UREA NITROGEN 7.2 mg/dL (7-18); MAGNESIUM 2.3 mg/dL (1.8-2.4)
[2021-07-05 08:13] LABS: CREATININE 0.7 mg/dL (0.55-1.3); PHOSPHOROUS 2.7 mg/dL (2.5-4.9)
[2021-07-05 08:14] LABS: BILIRUBIN,TOTAL 1.2 mg/dL (0.2-1); TOT PROT 6.9 g/dl (6.4-8.2)
[2021-07-05] MEDS: MUPIROCIN 2% TOPICAL OINTMENT FOR DECOLONIZATION NS SCH ×2 (10:11→22:38)
[2021-07-05 13:34] LABS: CALCIUM 8.5 mg/dL (8.5-10.1)
[2021-07-05 13:36] LABS: BLOOD UREA NITROGEN 6.3 mg/dL (7-18)
[2021-07-05 13:38] LABS: CREATININE 0.6 mg/dL (0.55-1.3)
[2021-07-05 21:52] LABS: BLOOD UREA NITROGEN 9.3 mg/dL (7-18); CALCIUM 8.3 mg/dL (8.5-10.1)
[2021-07-05 21:56] LABS: CREATININE 0.8 mg/dL (0.55-1.3)
[2021-07-05 22:16] VITALS: PULSE 90
[2021-07-05] MEDS: CHLORHEXIDINE GLUCONATE 4% CLEANSER FOR DECOLONIZATION TP SCH (22:37)
[2021-07-05] MEDS ORDERED: INSULIN (LEVEMIR) 100 UNITS/ML UNITS SQ ONE (23:11)
[2021-07-05] MEDS ORDERED: SODIUM CHLORIDE 0.45% 1,000 ML IV SCH (23:15)
[2021-07-06] MEDS: SODIUM CHLORIDE 0.45%/POT 20 MEQ/1,000 ML INFUS.BAG IV SCH ×2 (00:14→11:39)
[2021-07-06] MEDS: INSULIN SLIDING SCALE (NOVOLOG) 1 VIAL SQ SCH ×3 (00:15→10:23)
[2021-07-06] MEDS ORDERED: INSULIN (LEVEMIR) 100 UNITS/ML UNITS SQ ONE (07:00)
[2021-07-06] MEDS: HEPARIN NA (PORCINE) 5,000 UNITS/ML 1ML VIAL SQ SCH ×2 (07:26→14:06)
[2021-07-06 08:09] LABS: EOS % 1.9 % (0-4.5); HEMATOCRIT 32.8 % (32.4-45.2); HEMOGLOBIN 11.8 GM/dL (10.7-15.3); MCH 30.6 pg (25.7-33.7); MCHC 35.8 g/dl (32.0-36.0); MEAN CELL VOLUME 85.5 fl (80-96); MEAN PLT VOLUME 9.4 fl (7.5-11.1); MONO % 8.5 % (3.8-10.2); NEUT % 34.6 % (42.8-82.8); PLATELET COUNT 163 10^3/uL (134-434); RBC 3.84 M/mm3 (3.60-5.2); RDW 12.4 % (11.6-15.6)
[2021-07-06 08:18] LABS: ALBUMIN 3.1 g/dl (3.4-5.0); BLOOD UREA NITROGEN 6.4 mg/dL (7-18); CALCIUM 8.4 mg/dL (8.5-10.1); MAGNESIUM 2.1 mg/dL (1.8-2.4)
[2021-07-06 08:21] LABS: CREATININE 0.5 mg/dL (0.55-1.3); PHOSPHOROUS 2.8 mg/dL (2.5-4.9)
[2021-07-06 08:23] LABS: BILIRUBIN,TOTAL 0.7 mg/dL (0.2-1)
[2021-07-06] MEDS: MUPIROCIN 2% TOPICAL OINTMENT FOR DECOLONIZATION NS SCH (11:39)
[2021-07-06 12:10] LABS: SCLERODERMA 70 AB <0.2 AI (0.0-0.9)
[2021-07-06 14:21] VITALS: BP 118/78; TEMP 98
== END 2021-07-06 14:56 | disposition home or self-care (01) | DRG 639 ==
LOC: JER 23:59 → JERBED 07-02 01:02 → JICU 07-02 05:30
PROVIDERS: ADMIT Family Medicine; ATTEND Family Medicine
DX: E11.10 Type 2 diabetes mellitus with ketoacidosis without coma (principal); R11.2 Nausea with vomiting, unspecified; E87.5 Hyperkalemia; D72.829 Elevated white blood cell count, unspecified; E11.43 Type 2 diabetes mellitus with diabetic autonomic (poly)neuropathy; K31.84 Gastroparesis
CPT/HCPCS: 36415; 36600; 70450-TC; 70552-TC; 71045-TC-FY; 74176-TC; 76705-TC; 80048; 80053; 80061; 81003; 82010; 82150; 82436; 82803; 82962; 83036; 83605; 83690; 83735; 83935; 84100; 84133; 84300; 84439; 84443; 84484; 84702; 85025; 85027; 85379; 85610; 85730; 86038; 86162; 86235; 86337; 87040; 87804; 93005; 93010; 93308; 99285-25; A9579; C9803; J0131; J1644; J3480; U0003; U0005

== ENCOUNTER 2023-05-17 07:50 | Emergency (ER) | payer BC, OTHER ==
[2023-05-17] MEDS ORDERED: DEXTROSE 50%-WATER - 25 GM/50 ML VIAL IVPUSH PRN (07:55)
[2023-05-17] MEDS ORDERED: SODIUM CHLORIDE 0.9% 500 ML INFUS.BAG IV ONE ×2 (07:56→09:21)
[2023-05-17] MEDS ORDERED: ONDANSETRON 4 MG/2 ML VIAL IVPUSH ONE (08:06)
[2023-05-17 08:14] VITALS: BMI 24.9
[2023-05-17] MEDS ORDERED: ONDANSETRON 4 MG/2 ML VIAL ONE (08:37)
[2023-05-17 08:39] LABS: VENOUS BASE EXCESS -1.2 mmol/L (-2-2); VENOUS O2 SATURATION 82.1 % (70-80); VENOUS PCO2 37.1 mmHg (38-52); VENOUS PH 7.411 (7.310-7.410)
[2023-05-17 08:56] LABS: INR 1.07 (0.83-1.09); PROTHROMBIN TIME (PATIENT) 12.4 SEC (9.7-13.0)
[2023-05-17 08:58] LABS: ACTIVATED PTT 30.1 SECONDS (25.2-36.5)
[2023-05-17 09:04] LABS: BASO % 0.7 % (0-2.0); HEMATOCRIT 37.4 % (32.4-45.2); HEMOGLOBIN 13.2 GM/dL (10.7-15.3); LYMPH % 32.8 % (8-40); MCHC 35.2 g/dl (32.0-36.0); MEAN CELL VOLUME 87.9 fl (80-96); MEAN PLT VOLUME 10.1 fl (7.5-11.1); MONO % 8.9 % (3.8-10.2); NEUT % 55.6 % (42.8-82.8); PLATELET COUNT 175 10^3/uL (134-434); RBC 4.25 M/mm3 (3.60-5.2); RDW 12.9 % (11.6-15.6); WHITE BLOOD COUNT 5.4 K/mm3 (4.0-10.0)
[2023-05-17 09:07] LABS: POTASSIUM 3.6 mmol/L (3.5-5.1)
[2023-05-17 09:09] LABS: CALCIUM 8.5 mg/dL (8.5-10.1)
[2023-05-17 09:10] LABS: ALBUMIN 3.6 g/dl (3.4-5.0); BLOOD UREA NITROGEN 10.7 mg/dL (7-18); MAGNESIUM 1.7 mg/dL (1.8-2.4)
[2023-05-17 09:12] LABS: CREATININE 0.7 mg/dL (0.55-1.3)
[2023-05-17 09:14] LABS: BILIRUBIN,TOTAL 1.5 mg/dL (0.2-1); TOT PROT 6.7 g/dl (6.4-8.2)
[2023-05-17] MEDS ORDERED: POTASSIUM CHLORIDE ORAL LIQUID 20 MEQ/15 ML PO ONE (09:21)
[2023-05-17] MEDS ORDERED: POTASSIUM CHLORIDE TABS 20 MEQ TABLET.ER (FP) PO ONE (09:27)
[2023-05-17 11:10] LABS: EPI CELLS >36 /uL (0-25.1); HYALINE CASTS 1 /uL (0-3.1); URINE APPEARANCE CLEAR; URINE BACTERIA 6103 /uL (0-1359); URINE BILIRUBIN NEGATIVE (NEGATIVE); URINE COLOR YELLOW; URINE GLUCOSE (UA) 3+ (NEGATIVE); URINE KETONE NEGATIVE (NEGATIVE); URINE LEUK ESTERASE 2+ (NEGATIVE); URINE NITRITE NEGATIVE (NEGATIVE); URINE PROTEIN NEGATIVE (NEGATIVE); URINE RBC 8 /uL (0-23.9); URINE WBC 158 /uL (0-25.8)
[2023-05-17 11:54] VITALS: BP 109/70; PULSE 72; RESP 19; TEMP 98
== END 2023-05-17 12:04 | disposition home or self-care (01) ==
LOC: JER 07:50
PROC: 3E033GC Introduction of Other Therapeutic Substance into Peripheral Vein, Percutaneous Approach (ICD-10-PCS; principal; 2023-05-17)
PROC: 3E033GC Introduction of Other Therapeutic Substance into Peripheral Vein, Percutaneous Approach (ICD-10-PCS; 2023-05-17)
DX: E11.65 Type 2 diabetes mellitus with hyperglycemia (principal); R11.2 Nausea with vomiting, unspecified; R19.7 Diarrhea, unspecified; M79.10 Myalgia, unspecified site; R42 Dizziness and giddiness; R53.83 Other fatigue; Z20.822 Contact with and (suspected) exposure to COVID-19
CPT/HCPCS: 0241U-QW; 36415; 80053; 81003; 82010; 82248; 82550; 82803; 82962; 83690; 83735; 84484; 84703; 85025; 85610; 85730; 93005; 93010; 99284-25

== ENCOUNTER 2023-06-11 08:03 | Emergency (ER) | payer OTHER, BC ==
[2023-06-11 08:10] VITALS: BP 122/53; PULSE 78; RESP 18; TEMP 98.8; BMI 24.5
[2023-06-11] MEDS ORDERED: ACETAMINOPHEN 500 MG TABLET (FP) ONE (08:36)
[2023-06-11] MEDS ORDERED: ACETAMINOPHEN 500 MG TABLET (FP) PO ONE (08:37)
[2023-06-11] MEDS ORDERED: DIPHTH,PERTUSS(ACELL),TET 0.5 ML DISP.SYRIN IM ONE ×2 (08:37→08:58)
== END 2023-06-11 09:49 | disposition home or self-care (01) ==
LOC: JER 08:03
PROC: 3E0234Z Introduction of Serum, Toxoid and Vaccine into Muscle, Percutaneous Approach (ICD-10-PCS; principal; 2023-06-11)
DX: S01.111A Laceration without foreign body of right eyelid and periocular area, initial encounter (principal); W22.8XXA Striking against or struck by other objects, initial encounter; Y99.0 Civilian activity done for income or pay
CPT/HCPCS: 90715; 99283-25

== ENCOUNTER 2023-11-30 07:27 | Emergency (ER) | payer BC, OTHER ==
[2023-11-30 07:39] VITALS: RESP 18; TEMP 98.3; BMI 24.3
[2023-11-30] MEDS ORDERED: KETOROLAC TROMETHAMINE 15 MG/ML VIAL ONE (08:06)
[2023-11-30] MEDS: KETOROLAC TROMETHAMINE 15 MG/ML VIAL IVPUSH ONE (08:11)
[2023-11-30 08:12] LABS: BASO % 0.8 % (0-2.0); EOS % 2.7 % (0-4.5); HEMOGLOBIN 14.6 GM/dL (10.7-15.3); MCH 30.7 pg (25.7-33.7); MCHC 34.7 g/dl (32.0-36.0); MEAN CELL VOLUME 88.5 fl (80-96); MEAN PLT VOLUME 10.2 fl (7.5-11.1); MONO % 6.2 % (3.8-10.2); NEUT % 61.3 % (42.8-82.8); PLATELET COUNT 170 10^3/uL (134-434); RBC 4.74 M/mm3 (3.60-5.2); WHITE BLOOD COUNT 5.5 K/mm3 (4.0-10.0)
[2023-11-30 08:36] LABS: POTASSIUM 4.3 mmol/L (3.5-5.1)
[2023-11-30 08:38] LABS: ALBUMIN 3.6 g/dl (3.4-5.0); CALCIUM 8.2 mg/dL (8.5-10.1)
[2023-11-30 08:42] LABS: CREATININE 0.8 mg/dL (0.55-1.3)
[2023-11-30 08:43] LABS: TOT PROT 6.7 g/dl (6.4-8.2)
[2023-11-30 08:44] LABS: BILIRUBIN,TOTAL 1.5 mg/dL (0.2-1)
[2023-11-30] MEDS ORDERED: MAG HYDROX/AL HYDROX/SIMETH 30 ML UNIT-DOSE CUP ONE (11:41)
[2023-11-30] MEDS: MAG HYDROX/AL HYDROX/SIMETH 30 ML UNIT-DOSE CUP PO ONE (11:47)
[2023-11-30] MEDS: SODIUM CHLORIDE 0.9% 500 ML INFUS.BAG IV ONE (12:15)
[2023-11-30 12:56] VITALS: BP 109/53; PULSE 78
== END 2023-11-30 13:01 | disposition home or self-care (01) ==
LOC: JER 07:27
PROC: 3E0333Z Introduction of Anti-inflammatory into Peripheral Vein, Percutaneous Approach (ICD-10-PCS; principal; 2023-11-30)
DX: R10.13 Epigastric pain (principal); R10.11 Right upper quadrant pain
CPT/HCPCS: 36415; 71275-TC; 74174-TC; 76705-TC; 80053; 82010; 83690; 83735; 84484; 84703; 85025; 93005; 93010; 99285-25; Q9967

== ENCOUNTER 2024-09-08 18:58 | Emergency (ER) | payer BC ==
[2024-09-08 19:06] VITALS: BP 108/71; PULSE 77; RESP 20; TEMP 98.3; BMI 25.7
== END 2024-09-08 20:29 | disposition home or self-care (01) ==
LOC: JERFT 18:58
DX: M79.10 Myalgia, unspecified site (principal); B34.9 Viral infection, unspecified; Z20.822 Contact with and (suspected) exposure to COVID-19
CPT/HCPCS: 0241U-QW; 99283-25

== ENCOUNTER 2024-10-07 07:28 | Observation (INO) | payer BC ==
[2024-10-07 07:35] VITALS: BMI 24.9
[2024-10-07] MEDS ORDERED: ACETAMINOPHEN INJECTION 100 ML ONE (07:56)
[2024-10-07] MEDS ORDERED: ONDANSETRON 4 MG/2 ML VIAL ONE (07:57)
[2024-10-07] MEDS: ACETAMINOPHEN 1000 MG/100 ML BAG IVPB ONE (08:07)
[2024-10-07] MEDS: SODIUM CHLORIDE 0.9% 1000 ML INFUS.BAG IV STA (08:07)
[2024-10-07] MEDS: ONDANSETRON 4 MG/2 ML VIAL IVPUSH ONE (08:07)
[2024-10-07 08:11] LABS: VENOUS BASE EXCESS -11.9 mmol/L (-2-2); VENOUS O2 SATURATION 48.7 % (70-80); VENOUS PCO2 41.4 mmHg (38-52)
[2024-10-07 08:16] LABS: VENOUS PH 7.196 (7.310-7.410)
[2024-10-07 08:18] LABS: INR 1.18 (0.83-1.09)
[2024-10-07 08:21] LABS: ACTIVATED PTT 29.4 SECONDS (25.2-36.5)
[2024-10-07 08:26] LABS: BASO % 0.1 % (0-2.0); HEMOGLOBIN 15.4 GM/dL (10.7-15.3); LYMPH % 3.4 % (8-40); MCH 30.1 pg (25.7-33.7); MCHC 33.5 g/dl (32.0-36.0); MEAN PLT VOLUME 10.4 fl (7.5-11.1); MONO % 6.8 % (3.8-10.2); NEUT % 89.7 % (42.8-82.8); PLATELET COUNT 233 10^3/uL (134-434); RBC 5.11 M/mm3 (3.60-5.2); RDW 13.6 % (11.6-15.6); WHITE BLOOD COUNT 17.6 K/mm3 (4.0-10.0)
[2024-10-07 08:35] LABS: POTASSIUM 4.6 mmol/L (3.5-5.1)
[2024-10-07 08:36] LABS: CALCIUM 9.7 mg/dL (8.5-10.1)
[2024-10-07 08:37] LABS: ALBUMIN 4.7 g/dl (3.4-5.0); BLOOD UREA NITROGEN 24.2 mg/dL (7-18)
[2024-10-07 08:40] LABS: CREATININE 1.3 mg/dL (0.55-1.3)
[2024-10-07 08:42] LABS: BILIRUBIN,TOTAL 2.4 mg/dL (0.2-1); TOT PROT 7.8 g/dl (6.4-8.2)
[2024-10-07 08:44] LABS: LACTIC ACID 2.7 mmol/L (0.4-2.0)
[2024-10-07] MEDS ORDERED: INSULIN (NOVOLOG) ASPART 100 UNITS/ML 10ML VIAL SQ SCH (09:00)
[2024-10-07] MEDS ORDERED: fentaNYL CITRATE 250 MCG/5 ML VIAL ONE (09:08)
[2024-10-07] MEDS ORDERED: METOCLOPRAMIDE HCL INJECTION 10 MG/2 ML VIAL ONE (09:09)
[2024-10-07] MEDS: METOCLOPRAMIDE HCL INJECTION 10 MG/2 ML VIAL IVPB ONE ×3 (09:18)
[2024-10-07 09:48] LABS: URINE APPEARANCE CLEAR; URINE BILIRUBIN NEGATIVE (NEGATIVE); URINE COLOR YELLOW; URINE GLUCOSE (UA) 3+ (NEGATIVE); URINE KETONE 4+ (NEGATIVE); URINE LEUK ESTERASE NEGATIVE (NEGATIVE); URINE NITRITE NEGATIVE (NEGATIVE); URINE PROTEIN NEGATIVE (NEGATIVE); URINE UROBILINOGEN 0.2 mg/dL (0.2-1.0)
[2024-10-07] MEDS ORDERED: PANTOPRAZOLE SODIUM 40 MG VIAL ONE (09:52)
[2024-10-07] MEDS: SODIUM CHLORIDE 0.9% 1000 ML INFUS.BAG IV ONE (09:53)
[2024-10-07] MEDS: PANTOPRAZOLE SODIUM 40 MG VIAL IVPUSH SCH (09:59)
[2024-10-07 10:16] LABS: AMYLASE 40 U/L (25-115)
[2024-10-07 12:50] LABS: HEMATOCRIT 35.9 % (34.1-44.9); HEMOGLOBIN 11.7 g/dL (11.2-15.7); MCHC 32.6 g/dl (32.2-35.5); MEAN CELL VOLUME 92.3 fl (79.4-94.8); MEAN PLT VOLUME 11.7 fl (9.4-12.3); PLATELET COUNT # 177 x10^3/uL (182-369); RDW 12.7 % (12.2-17.1)
[2024-10-07] MEDS: POTASSIUM CHLORIDE 10 MEQ in SODIUM CHLORIDE 1,000 ML IVPB SCH (12:53)
[2024-10-07 13:03] LABS: POTASSIUM 4.3 mmol/L (3.5-5.1)
[2024-10-07 13:06] LABS: BLOOD UREA NITROGEN 20.1 mg/dL (7-18)
[2024-10-07 13:09] LABS: CREATININE 0.7 mg/dL (0.55-1.3)
[2024-10-07 13:10] LABS: BILIRUBIN,TOTAL 1.7 mg/dL (0.2-1)
[2024-10-07 13:17] LABS: ALBUMIN 3.4 g/dl (3.4-5.0); CALCIUM 7.4 mg/dL (8.5-10.1); TOT PROT 5.8 g/dl (6.4-8.2)
[2024-10-07] MEDS: LACTATED RINGERS SOLUTION 1000 ML INFUS.BAG IV ONE (13:44)
[2024-10-07] MEDS: ACETAMINOPHEN 500 MG TABLET (FP) PO PRN (17:15)
[2024-10-07] MEDS: ONDANSETRON 4 MG/2 ML VIAL IVPB PRN (17:15)
[2024-10-08] MEDS: PANTOPRAZOLE 40 MG TABLET PO SCH (09:06)
[2024-10-08 09:27] LABS: ABSOLUTE IMMATURE GRANULOCYTES 0.03 x10^3/uL (0.0-0.031); BASOPHILS # 0.04 x10^3/uL (0.01-0.08); EOSINOPHIL % 0.4 % (0.7-5.8); EOSINOPHILS # 0.03 x10^3/uL (0.04-0.36); HEMATOCRIT 33.3 % (34.1-44.9); HEMOGLOBIN 11.1 g/dL (11.2-15.7); MCHC 33.3 g/dl (32.2-35.5); MEAN CELL VOLUME 88.6 fl (79.4-94.8); MEAN PLT VOLUME 11.4 fl (9.4-12.3); MONOCYTE # 0.49 x10^3/uL (0.24-0.86); MONOCYTE % 6.4 % (4.7-12.5); PLATELET COUNT # 154 x10^3/uL (182-369); RDW 12.8 % (12.2-17.1)
[2024-10-08 09:51] LABS: POTASSIUM 3.4 mmol/L (3.5-5.1)
[2024-10-08 10:01] VITALS: TEMP 97.9
[2024-10-08 10:14] LABS: ALBUMIN 2.8 g/dl (3.4-5.0); BLOOD UREA NITROGEN 12.5 mg/dL (7-18); CALCIUM 7.3 mg/dL (8.5-10.1)
[2024-10-08 10:17] LABS: CREATININE 0.7 mg/dL (0.55-1.3)
[2024-10-08 10:19] LABS: BILIRUBIN,TOTAL 1.1 mg/dL (0.2-1); TOT PROT 4.9 g/dl (6.4-8.2)
[2024-10-08] MEDS: POTASSIUM CHLORIDE ORAL LIQUID 20 MEQ/15 ML PO ONE (11:15)
[2024-10-08 16:04] VITALS: BP 107/67; PULSE 76; RESP 18
== END 2024-10-08 18:17 | disposition home or self-care (01) ==
LOC: JER 07:28 → JERBED 08:53 → UNDOADMIN 08:53 → JERBED 13:33 → J6S 14:29
PROVIDERS: ADMIT Family Medicine; ATTEND Family Medicine
PROC: 3E033NZ Introduction of Analgesics, Hypnotics, Sedatives into Peripheral Vein, Percutaneous Approach (ICD-10-PCS; principal; 2024-10-07)
PROC: 3E013VG Introduction of Insulin into Subcutaneous Tissue, Percutaneous Approach (ICD-10-PCS; 2024-10-07)
PROC: 3E033GC Introduction of Other Therapeutic Substance into Peripheral Vein, Percutaneous Approach (ICD-10-PCS; 2024-10-07)
PROC: 3E0337Z Introduction of Electrolytic and Water Balance Substance into Peripheral Vein, Percutaneous Approach (ICD-10-PCS; 2024-10-07)
DX: K52.9 Noninfective gastroenteritis and colitis, unspecified (principal); D72.829 Elevated white blood cell count, unspecified; E11.9 Type 2 diabetes mellitus without complications; G93.5 Compression of brain
CPT/HCPCS: 0241U-QW; 36415; 71045-TC-FY; 76705-TC; 80053; 81003; 82010; 82150; 82803; 82962; 83605; 83690; 84484; 85025; 85027; 85610; 85730; 86850; 86900; 86901; 87040; 87086; 93005; 93010; 99285-25; G0378; J0131

== ENCOUNTER → 2024-12-24 | Day surgery (SDC) | payer BC | END | disposition home or self-care (01) | LOC: JRADUS-SUR 08:06 | PROVIDERS: ATTEND Internal Medicine | PROC: 0H9V3ZX Drainage of Bilateral Breast, Percutaneous Approach, Diagnostic (ICD-10-PCS; principal; 2024-12-24) | PROC: 0H9T3ZX Drainage of Right Breast, Percutaneous Approach, Diagnostic (ICD-10-PCS; 2024-12-24) | DX: D24.1 Benign neoplasm of right breast (principal); N60.02 Solitary cyst of left breast; N60.01 Solitary cyst of right breast | CPT/HCPCS: 19000; 19001; 19083; 76942-TC; 77065-TC; 87899; 88173; 88305-TC; 88341-TC; 88342-TC; A4648 ==